=== PATIENT | male | born 1965 | race Caucasian/White ===

== ENCOUNTER 2025-01-19 07:57 | Inpatient (IN) ==
--- NOTE | 2025-01-19 09:03 | Emergency Department Note ---
Impression & Plan Right hallux osteomyelitis, Chronic osteomyelitis, Dry gangrene ED Provider Note NAME: TRE ALONSO AGE: 59 SEX: M : 1965 ARRIVES VIA: Walk-In INFORMANT: Patient ED PROVIDER(S): Sly Vickers DO CHIEF COMPLAINT: toe infection HPI: This is a 59-year-old male with the PMHx of Peripheral artery disease, hyperlipidemia, prior DVT/thrombus s/p thrombectomy in June, tobacco use disorder and chronic toe infection presenting to [facility] for further evaluation of toe infection. Patient sent in by his outpatient tube bender for amputation. Patient states that he originally had a wound on his right toe last May. Patient states this was from his dog. Patient states it has gotten a lot worse and he continues to follow with podiatry. Patient reports a chronic infection. He states he has not been on antibiotics. He has right hallux ischemia appears like dry gangrene. he reports pain in the toe and chronic wound. He does report some drainage from the area. He reports that his right lower extremity is chronically swollen from his prior thrombectomy. They deny fever or chills. No cough or congestion. Denies chest pain or palpitations. No shortness of breath. They deny abdominal pain, nausea and vomiting. No urinary complaints. No recent changes in bowel movements. Patient denies recent changes in medications or OTC supplements. Patient offers no other complaints, today. ADDITIONAL HISTORY OBTAINED: Per HPI Chronic Medical/Social Conditions Affecting Care: Per HPI PAST MEDICAL HISTORY: See Below PAST SURGICAL HISTORY: See Below FAMILY HISTORY: See Below SOCIAL HISTORY: See Below HOME MEDICATIONS: See Below ALLERGIES: See Below VITALS: See Below PHYSICAL EXAMINATION: GENERAL: Sitting up in bed, alert, well appearing, well nourished, no distress, non-toxic EYE EXAM: normal conjunctiva. OROPHARYNX: no exudate, no erythema, lips, buccal mucosa, and tongue normal and mucous membranes are moist NECK: supple, no nuchal rigidity, no adenopathy, non-tender LUNGS: Clear to auscultation. Normal chest wall mechanics HEART: no murmurs, regular rate, regular rhythm ABDOMEN: abdomen soft, non-tender, no masses, no rebound or guarding. BACK: Back is symmetrical on inspection and there is no deformity, no midline tenderness, no CVA tenderness. SKIN: no rashes and no bruising UPPER EXTREMITIES: upper extremities are grossly normal. LOWER EXTREMITIES: 1+ edema of the RLE. Palpable DP. Gangrene of the hallux, minimal drainage. NEURO EXAM: Normal sensorium, GCS 15, normal speech, no gross weakness of arms, no gross weakness of legs. MEDICAL DECISION MAKING: Differential diagnoses includes but not limited to dry gangrene, osteomyelitis, dizziness status, cellulitis, PAD In summary, this is a 59 year old male who presented with gangrene of the R hallux. Differential as above. Nursing notes and pertinent past medical records reviewed. Vital signs reviewed and the patient is afebrile and HDS. History and presentation revealed sent in by podiatry for amputation. Time Study Observer was able to obtain records from the [facility] physicians group including recent documentation from his tube bender. Patient did have podiatry have a debridement recently. Patient was recommended to report to the emergency department for evaluation of possible amputation. Physical examination revealed as above. As a result of my initial evaluation, we will try to contact his tube bender and obtain labs/imaging. We will plan for inflammatory markers and basic labs. I do feel the patient likely has dry gangrene. Do feel there could be a component of chronic osteomyelitis. As far as imaging, we will obtain a basic x-ray. The patient may benefit from further imaging. I will calculate and obtain ABIs. Do feel the patient would benefit from CT scan or MRI. Diagnostics interpreted by me include cardiac monitoring as listed below: -Cardiac Monitoring: An order was placed for continuous cardiac monitoring. The monitor shows a rate of 50-70s with regular rhythm. Patient completed laboratory studies and imaging. Results independently interpreted by me are minimally elevated CRP. Patient does not have a leukocytosis or elevation in ESR. No significant electrolyte derangements or kidney dysfunction. CT showed ulceration and evidence of osteomyelitis of the right knee. Patient was made n.p.o. and closely observed in the emergency department. Given no significant systemic symptoms including no fevers as well as reassuring inflammatory markers I do believe this is likely chronic osteomyelitis. Do not feel the patient needs broad-spectrum antibiotics at this time. Patient was discussed with [facility] podiatry group, Dr. Anton. He has arranged OR time for this evening after 5 PM. Patient was made NPO. He did recommend collecting ABIs as discussed previously. Will obtain CTA of the lower extremity as well. I do not see a need for antibiotics at this time. Patient will be admitted to the hospitalist service following workup. Ultimately, the decision was made to admit the patient for dry gangrene and osteomyelitis of the right hallux. It was recommended to admit this patient at 1002. I discussed the case with the hospitalist service via telephone/TigerText and they are agreeable to admit the patient to their services at 1006. Based on the above, including the patient's age, coexisting illnesses, labs, imaging, and exam findings the decision to treat as an inpatient. I discussed the patient with the hospitalist team who recommended admission to their services. They received the medications, treatments, interventions indicated above and their condition remained stable. I discussed my findings with the patient and their family and they understand and agree with the treatment plan. All patient / family questions were answered to their satisfaction. Consults/Care Managements Discussions: Per [facility] ER treatment provided: See above Procedures:none Critical Care: None The chart was completed utilizing [employer] Speech voice recognition software. Grammatical errors, random word insertions, pronoun errors, and incomplete sentences are an occasional consequence of this system due to software limitations, ambient noise, and hardware issues. Any formal questions or concerns about the content, text, or information contained within the body of this dictation should be directly addressed to the physician for clarification. Past Med/Surg History Problem List (Updated 01/19/25 @ 17:11 by Sly Vickers DO) Dry gangrene (Acute) Chronic osteomyelitis (Acute) Acute on chronic osteomyelitis Right hallux osteomyelitis (Acute) Social History Smoking Status: Current some day smoker Tobacco Type: Cigarettes Hx Alcohol Use: Yes Alcohol type: beer Hx Substance Use: Yes Last Used Substance: Days (ago) Preferred Language: Yemeni Communication Ability: Effective Park Guard Required: No Beliefs That Will Affect Care: None Current Living Situation: Alone Other Information That Helps Us Care for You: No Feels Safe at Home: Yes Safety Concerns: Feels Safe At This Time Assistive Devices: None Allergies Allergies Allergy/AdvReac Type Severity Reaction Status Date / Time No Known Allergies Allergy Unverified 01/19/25 10:59 Home Meds Home Medications Medication Instructions Recorded Confirmed No Known Home Medications 01/19/25 01/19/25 Results & Data (ED) Vital Signs Vital Signs - 24 hr 01/19/25 08:03 01/19/25 09:52 01/19/25 10:51 Temperature 36.6 C Temperature Source Temporal Artery Scan Pulse Rate 74 Pulse Rate [Apical] 60 56 L Respiratory Rate 20 14 16 Respiratory Effort / Characteristics Non-Labored Spontaneous Respiratory Depth Normal Respiratory Pattern Regular Blood Pressure 136/85 Blood Pressure [Right Arm] 122/70 119/97 Blood Pressure Mean 102 Blood Pressure Mean [Right Arm] 87 104 Pulse Oximetry 95 97 98 Oxygen Delivery Method Room Air Room Air Room Air Sepsis Recent Fever Within 48 Hours No Sepsis New/Unexplained Change in Mental Status N/A Sepsis Action Taken by Nursing No Action Required Laboratory Data 01/19/25 08:30 01/19/25 08:30 Lab Results 01/19/25 Range/Units 08:30 WBC 10.61 (4.8-10.8) K/ul RBC 5.80 (4.70-6.10) M/uL Hgb 15.8 (14.0-18.0) g/dl Hct 47.1 (42.0-52.0) % MCV 81.2 (80.0-100.0) fL MCH 27.2 (25.0-34.0) pg MCHC 33.5 (32.0-36.0) g/dL RDW Std Deviation 41.1 (36.4-46.3) fL RDW Coeff of Serenity 14.2 (11.5-14.5) % Plt Count 232 (130-400) K/uL MPV 10.5 (9.4-12.4) fL Immature Gran % (Auto) 0.3 % Neut % (Auto) 64.4 % Lymph % (Auto) 23.5 % [place] % (Auto) 7.5 % Eos % (Auto) 3.6 % Baso % (Auto) 0.7 % Neut # (Auto) 6.84 H (1.40-6.50) K/uL Lymph # (Auto) 2.49 (1.20-3.40) K/uL [place] # (Auto) 0.80 H (0.11-0.59) K/uL Eos # (Auto) 0.38 (0.00-0.50) K/uL Baso # (Auto) 0.07 (0.00-0.20) K/uL Immature Gran # (Auto) 0.03 (0.01-0.20) K/uL ESR 9 (0-20) mm/hr Sodium 139 (136-145) mmol/L Potassium 3.8 (3.5-5.1) mmol/L Chloride 108 H (98-107) mmol/L Carbon Dioxide 26 (21-32) mmol/L Anion Gap 5 (3-11) BUN 16 (6-23) mg/dl Creatinine 0.84 (0.6-1.4) mg/dl Est Cr Clr Drug Dosing 103.3 ml/min eGFR 101.71 BUN/Creatinine Ratio 19.0 (10-20) Glucose 80 (70-99(Fasting)) mg/dl Calcium 8.8 (8.6-10.3) mg/dl C-Reactive Protein 0.59 H (0-0.5) mg/dl Administered Medications Sodium Chloride (Nss) 1,000 mls @ 80 mls/hr IV .[id number] STEPHEN Stop: 01/22/25 13:46 Last Admin: 01/19/25 14:59 Dose: 80 mls/hr Documented By: JESSICA Discontinued Medications Piperacillin Sod/Tazobactam Sod (Zosyn) 4.5 gm in 100 mls @ 200 mls/hr IV ONE ONE; Protocol Stop: 01/19/25 14:44 Last Infusion: 01/19/25 16:13 Dose: Infused Documented By: Admin: 01/19/25 14:58 Dose: 200 mls/hr Documented By: JESSICA Vancomycin HCl 1,750 mg/ (Sodium Chloride) 535 mls @ 200 mls/hr IV ONE ONE Stop: 01/19/25 16:55 Last Admin: 01/19/25 15:57 Dose: 200 mls/hr Documented By: JESSICA Ioversol (Optiray 320 100ml) 94 ml IV ONCE ONE Stop: 01/19/25 09:42 Last Admin: 01/19/25 09:41 Dose: 94 ml Documented By: SUSI Imaging Data Radiologist's Impression: Foot X-Ray 01/19/25 08:19 XR foot RT min 3V routine CLINICAL HISTORY: chronic OM concern COMPARISON: None FINDINGS: There is a 1.5 cm area of lucency distally at the first proximal phalanx. It has morphology suggesting osteomyelitis. No other evidence of osteomyelitis seen. No fracture or dislocation. There is a 4 cm oval smooth well marginated lucency at the anterior aspect of the calcaneus which could represent calcaneal lipoma or bone cyst. It has a benign appearance. IMPRESSION: Findings consistent with osteomyelitis distally at the first proximal phalanx. ACT 112: Negative or not required by law. Electronically signed by: Dakotah Colon M.D. 01/19/2025 9:[address] 01/19/25 09:03 CT foot RT w con CLINICAL HISTORY: eval for OM, free air, abscess COMPARISON STUDY: X-ray earlier today FINDINGS: There is a 1.6 cm area of osseous destruction distal aspect of the first proximal phalanx. There are multiple small gas locules within the first distal phalanx. There is soft tissue swelling at the great toe with multiple small soft tissue gas locules at the plantar aspect. There is a plantar soft tissue ulcer at the great toe which extends to the region of osseous destruction distally at the first distal phalanx. There is a possible tiny adjacent soft tissue abscess. No other significant soft tissue abscess or hematoma seen. No other evidence of osteomyelitis seen. No acute fracture or dislocation. There is a 4 cm oval sharply marginated finding at the anterior to mid plantar calcaneus with a smaller internal oval peripherally calcified finding. The finding has morphology consistent with calcaneal lipoma or bone cyst. It has a benign appearance. IMPRESSION: 1. Soft tissue ulcer and soft tissue gas at the great toe suggesting gangrene. 2. Acute osteomyelitis distally at the first proximal phalanx. 3. Otherwise as described. ACT 112: Negative or not required by law. Electronically signed by: Dakotah Colon M.D. 01/19/2025 10:05 AM Discharge Plan Visit Data Chief Complaint: Toe Injury/Pain Stated Complaint: R GRAND TOE NEEDS REMOVED ED Provider: Sly iVckers Discharge Problem: Right hallux osteomyelitis, Chronic osteomyelitis, Dry gangrene Patient Disposition: Admitted As Inpatient Condition: Good Discharge Instructions Interventions: ED Discharge Assessment Last Done: 01/19/25 13:28
[2025-01-19 09:04] LABS: Hematocrit (blood only) 47.1 % (42.0-52.0); Hemoglobin 15.8 g/dl (14.0-18.0); Immature Granulocytes # (auto) 0.03 K/uL (0.01-0.20); Immature Granulocytes % (auto) 0.3 %; Mean Corpuscular Hemoglobin 27.2 pg (25.0-34.0); Mean Corpuscular Volume 81.2 fL (80.0-100.0); Platelet Count 232 K/uL (130-400); RDW Standard Deviation 41.1 fL (36.4-46.3); Red Blood Count 5.80 M/uL (4.70-6.10); White Blood Count 10.61 K/ul (4.8-10.8)
--- NOTE | 2025-01-19 09:17 | XRay Report ---
XR foot RT min 3V routine CLINICAL HISTORY: chronic OM concern COMPARISON: None FINDINGS: There is a 1.5 cm area of lucency distally at the first proximal phalanx. It has morpholog y suggesting osteomyelitis. No other evidence of osteomyelitis seen. No fracture or dislocation. Ther e is a 4 cm oval smooth well marginated lucency at the anterior aspect of the calcaneus which could r epresent calcaneal lipoma or bone cyst. It has a benign appearance. IMPRESSION: Findings consistent with osteomyelitis distally at the first proximal phalanx. ACT 112: Negative or not required by law. Electronically signed by: Dakotah Colon M.D. 01/19/2025 9:16 AM
[2025-01-19 09:23] LABS: Anion Gap 5.0 (3-11); Blood Urea Nitrogen 16.0 mg/dl (6-23); Calcium 8.8 mg/dl (8.6-10.3); Carbon Dioxide 26.0 mmol/L (21-32); Chloride 108.0 mmol/L (98-107); Creatinine Clr Calc Pharmacy 103.3 ml/min; Glucose 80.0 mg/dl (70-99(Fasting)); Potassium 3.8 mmol/L (3.5-5.1); Sodium 139.0 mmol/L (136-145)
[2025-01-19] MEDS: OPTIRAY 320 100ml IV ONE (09:41)
--- NOTE | 2025-01-19 10:06 | CT Scan Report ---
CT foot RT w con CLINICAL HISTORY: eval for OM, free air, abscess COMPARISON STUDY: X-ray earlier today FINDINGS: There is a 1.6 cm area of osseous destruction distal aspect of the first proximal phalanx. There are multiple small gas locules within the first distal phalanx. There is soft tissue swelling a t the great toe with multiple small soft tissue gas locules at the plantar aspect. There is a plantar soft tissue ulcer at the great toe which extends to the region of osseous destruction distally at th e first distal phalanx. There is a possible tiny adjacent soft tissue abscess. No other significant s oft tissue abscess or hematoma seen. No other evidence of osteomyelitis seen. No acute fracture or dislocation. There is a 4 cm oval sharply marginated finding at the anterior to mid plantar calcaneus with a smaller internal oval peripherally calcified finding. The finding has mo rphology consistent with calcaneal lipoma or bone cyst. It has a benign appearance. IMPRESSION: 1. Soft tissue ulcer and soft tissue gas at the great toe suggesting gangrene. 2. Acute osteomyelitis distally at the first proximal phalanx. 3. Otherwise as described. ACT 112: Negative or not required by law. Electronically signed by: Dakotah Colon M.D. 01/19/2025 10:05 AM
--- NOTE | 2025-01-19 11:26 | History & Physical Report ---
Date of Service January 19, 2025 Assessment & Plan (1) Right hallux osteomyelitis: (2) Acute on chronic osteomyelitis: Plan Mario West is a 59 y/o M with a past medical hx of PAD, DVT s/p thrombectomy in June, tobacco use disorder and chronic R. hallux infection and patient was sent by outpatient glass laminating operator for admit to [facility] for toe amputation surgery. Right Hallux Osteomyelitis/Acute on chronic osteomyelitis - X-ray R. foot: 1.5cm area of lucency distally at first proximal phalanx, morphology concerning for osteomyelitis - CT R. foot: Soft tissue ulcer and soft tissue gas at R. first toe suggesting gangrene. Acute osteomyelitis at distal first proximal phalanx - Etiology of poor wound healing likely related to PAD - Zosyn and Vancomycin broad spectrum abx started, can downgrade after cx results. - MRSA nares pending, ABIs pending - Bcx x2 ordered and pending - NPO pending toe amputation surgery today History of Present Illness Primary Care Provider: NO PCP Mario West is a 59 y/o M with a past medical hx of PAD, DVT s/p thrombectomy in June, tobacco use disorder and chronic R. hallux infection and patient was sent by outpatient glass laminating operator for admit to [facility] for toe amputation surgery. Patient's R. big toe is blackened with ischemia and nail sloughing off, some erythema present under open toe nail. Podiatry team with [facility] and Dr. Mazariegos will be performing toe amputation surgery and patient is amenable to this plan. Patient denies fevers, chills, headaches, chest pain, palpitations, SOB, cough, wheeze, abdominal pain, nausea, and vomiting. Patient reports that he is in "perfect physical condition" other than his big toe. Patient reports that he has feeling in all extremities and reports mild soreness of the toe that is moderately exacerbated by touch and wearing shoes. Patient reports that a dog scratch last May resulted in the affected toe becoming e rythematous and swollen and resulting in a 2 week hospital stay requiring IV antibiotics and podiatry follow-up. Patient reports that his toe was not blackened during this time. Patient typically uses topical antibiotic cream and wraps R. big toe. Patient reports that he only takes a baby aspirin daily and calcium supplement as his regular medications. Patient is hemodynamically stable, and has no acute complaints or concerns other than feeling hungry. Allergies Allergy/AdvReac Type Severity Reaction Status Date / Time No Known Allergies Allergy Unverified 01/19/25 10:59 Home Medications Medication Instructions Recorded Confirmed Type No Known Home Medications 01/19/25 01/19/25 History Past Med/Surg History Problem List (Updated 01/19/25 @ 12:04 by Ric Gardner DO) Acute on chronic osteomyelitis Right hallux osteomyelitis Social History Smoking Status: Current some day smoker Tobacco Type: Cigarettes Hx Alcohol Use: Yes Alcohol type: beer Hx Substance Use: Yes Last Used Substance: Days (ago) Preferred Language: Polish Communication Ability: Effective Bank Clerk Required: No Beliefs That Will Affect Care: None Current Living Situation: Alone Other Information That Helps Us Care for You: No Feels Safe at Home: Yes Safety Concerns: Feels Safe At This Time Assistive Devices: None Physical Exam Physical Exam: General: patient resting comfortably, NAD, non-toxic in appearance, answers questions appropriately. Skin: warm, dry, intact HEENT: NC/AT, anicteric sclera, conjunctiva without injection, moist mucus membranes. Heart: +S1/S2, regular, no m/r/g Lungs: equal air entry bilaterally, no rales/rhonchi/wheezes Abd: +BS, soft, NT/ND Ext: warm, no clubbing/cyanosis. R. Hallux w/ necrosis of big toenail w/ edema and erythema. Blackened toenail sloughing with underlying erythematous dermis seen from open wound. Tender to light palpation. Neuro: nonfocal, speech intact, no facial droop, moving all extremities. Results & Data Results & Data Vital Signs (Past 12 Hours) Vital Signs Temp Pulse Pulse Resp BP BP Pulse Ox 01/19/25 10:51 56 L 16 119/97 98 01/19/25 09:52 60 14 122/70 97 01/19/25 08:03 36.6 C 74 20 136/85 95 O2 Del Method 01/19/25 10:51 Room Air 01/19/25 09:52 Room Air 01/19/25 08:03 Room Air Supervising Physician Co-Signing Physician Notes I personally examined the patient and verified vance points of history and exam, discussed case, and agree with decision making and plan documented by Dr. Gardner. Patient is a 59-year-old male with gangrenous great right toe, scheduled for amputation later today. Osteomyelitis on CT foot. Agree with plan. Resident Activity Tracking Resident Involvement: Resident Care Provided Care Provided: Adult [facility]
[2025-01-19] MEDS ORDERED: VANCOMYCIN HCL 1,000 MG/270 ML BAG IV SCH (13:47)
[2025-01-19] MEDS ORDERED: VANCOMYCIN CONSULT ACTIVE PRN (13:47)
--- NOTE | 2025-01-19 14:20 | Pharmacy Report ---
Pharmacy PK ABX Note - Date of Service January 19, 2025 - Assessment and Plan Assessment 59 year old M receiving IV Vancomycin + Zosyn for treatment of chronic R. hallux infection/osteo, patient was sent to [facility] by outpatient neuro psych sales specialist for toe amputation surgery. - X-ray R. foot: 1.5cm area of lucency distally at first proximal phalanx, morphology concerning for osteomyelitis. Blood cultures ordered, but refused by patient. Afebrile, WBC wnl. Day # 1 of antimicrobial therapy. Plan Vancomycin * Loading dose: 1750 mg IV x 1 * Maintenance dose: 1250 mg IV every 12 hours * Regimen is predicted to achieve target AUC/TITO of 400-600 mg/L.hr * Trough level ordered for:01/20/25 prior to 1200 dose Zosyn 4.5g IV Q8H extended interval infusion Pharmacy will continue to follow and will adjust dose/frequency as necessary. Thank you. Pharmacy has transitioned to AUC monitoring for vancomycin. AUC/TITO is the preferred PK/PD target and is associated with decreased risk of nephrotoxicity compared to traditional trough targets.
[2025-01-19] MEDS: PIPERACILLIN/TAZOBACTAM 4.5 GM/100 ML BAG IV ONE (14:58)
[2025-01-19] MEDS: SODIUM CHLORIDE 0.9% 1,000 ML IV SCH (14:59)
[2025-01-19] MEDS ORDERED: MIDAZOLAM HCL 1 MG/ML 2ML VIAL ONE (15:14)
[2025-01-19] MEDS ORDERED: LIDOCAINE 2% 2 ML VIAL/AMP(20MG/ML) INFIL ONE (15:14)
[2025-01-19] MEDS ORDERED: ONDANSETRON INJ 2 MG/ML 2 ML VIAL ONE (15:14)
[2025-01-19] MEDS ORDERED: PROPOFOL IV EMULSION 10 MG/ML 20 ML VIAL IV ONE (15:14)
[2025-01-19] MEDS: VANCOMYCIN HCL 1,750 MG in SODIUM CHLORIDE 0.9% 500 ML IV ONE (15:57)
--- NOTE | 2025-01-19 17:03 | Infectious Disease Consult ---
Date of Consultation January 19, 2025 Assessment & Plan (1) Right hallux osteomyelitis: Plan ID Problem List: # Right hallux wound c/b osteomyelitis # PAD Impression: Mario West is a 59-year-old man with history of PAD, DVT s/p thrombectomy 06/2024, tobacco use disorder, chronic R hallux wound, who was sent by his podiatry to [facility] on 01/19/25 for R big toe infection c/b osteomyelitis and planned amputation. ID is consulted for R hallux osteomyelitis. The patient has a chronic R big toe wound. It has been recently noted to be blackened with the nail sloughing off. The patient was sent to [facility] on 01/19/25 for toe amputation. No fevers, chills, shortness of breath, cough, abdominal pain, n/v/d reported. He has been feeling well aside from his toe wound. He did report a dog scratch 05/2025 that resulted in the affected toe becoming erythematous and swollen and resulting in a 2 week hospital stay requiring IV antibiotics and podiatry follow-up. Upon presentation, afebrile, WBC 10.61. X-ray showed a 1.5cm area of lucency distally at first proximal phalanx, morphology concerning for osteomyelitis. CT R foot showed soft tissue ulcer and soft tissue gas at R first toe c/f gangrene; acute osteomyelitis at distal first proximal phalanx. He was started on vancomycin and pip-tazo. He is planned for toe amputation with podiatry today . Pt was not reported to have been on outpatient abx prior to admission. Discussion Pt with chronic R hallux wound c/b osteomyelitis. Pending OR planned for 01/19 with podiatry for toe amputation. No records available of any outpatient cultures/micro data. Pt was not reported to have been on outpatient abx prior to admission. He was started on vancomycin and pip-tazo this is a broader pre-operative regimen than is typically preferred (especially given pts clinical stability) but he is planned to go to OR within a few hours of the abx starting. Final abx selection and duration will be pending surgical plan and Cx. If debriding/amputating with residual bony infection, anticipate a 6-week course of abx (likely majority if not all IV); if receiving a more proximal amputation which removes all of the bony infection, then anticipate only a short course of abx post-operatively. Can continue vancomycin and pip-tazo for now pending OR Cx. Recommendations: - Can continue vancomycin and pip-tazo for now pending OR Cx - Appreciate podiatry, OR planned for 01/19. If going to the OR, please send bone and tissue cultures for bacterial and fungal cultures. If applicable, send proximal bone margins for pathology - If residual osteomyelitis after OR, then anticipate a 6-week course of abx ID will continue to follow. Edwige Aggarwal MD, M[facility] Infectious Diseases [facility] ID Connect direct line: [phone] Consultation Information This patient recommendation is based on a telemedicine consult request which was completed asynchronously through chart review and information provided by the primary physician. The patient was not seen or examined today. The evaluation is consultative in nature and all patient care and treatment decisions can either be accepted or rejected by the patient's primary hospital-based treating physician using their own independent medical judgment for their patient. Motion Picture Camer[employer] contact information: Please call [facility] Connect Call Center . (Phone Number For Physician Use Only) PLEASE NOTE: E-consult was performed for this visit given limited telepresenter availability. Time Spent Reviewing Chart: 31+ minutes History of Present Illness Reason for Consultation: R hallux osteomyelitis Attending Physician: Tessa Sorto DO History of Present Illness Mario West is a 59-year-old man with history of PAD, DVT s/p thrombectomy 06/2024, tobacco use disorder, chronic R hallux wound, who was sent by his podiatry to [facility] on 01/19/25 for R big toe infection c/b osteomyelitis and planned amputation. ID is consulted for R hallux osteomyelitis. The patient has a chronic R big toe wound. It has been recently noted to be blackened with the nail sloughing off. The patient was sent to [facility] on 01/19/25 for toe amputation. No fevers, chills, shortness of breath, cough, abdominal pain, n/v/d reported. He has been feeling well aside from his toe wound. He did report a dog scratch 05/2025 that resulted in the affected toe becoming erythematous and swollen and resulting in a 2 week hospital stay requiring IV antibiotics and podiatry follow-up. Upon presentation, afebrile, WBC 10.61. X-ray showed a 1.5cm area of lucency distally at first proximal phalanx, morphology concerning for osteomyelitis. CT R foot showed soft tissue ulcer and soft tissue gas at R first toe c/f gangrene; acute osteomyelitis at distal first proximal phalanx. He was started on vancomycin and pip-tazo. He is planned for toe amputation with podiatry today 01/19. Pt was not reported to have been on outpatient abx prior to admission. Allergies Allergy/AdvReac Type Severity Reaction Status Date / Time No Known Allergies Allergy Unverified 01/19/25 10:59 Home Medications Medication Instructions Recorded Confirmed Type No Known Home Medications 01/19/25 01/19/25 History Patient History Social History Smoking Status: Current some day smoker Tobacco Type: Cigarettes Hx Alcohol Use: Yes Alcohol type: beer Hx Substance Use: Yes Last Used Substance: Days (ago) Preferred Language: [place]amb[place] Communication Ability: Effective Trauma Manager Required: No Beliefs That Will Affect Care: None Current Living Situation: Alone Other Information That Helps Us Care for You: No Feels Safe at Home: Yes Safety Concerns: Feels Safe At This Time Assistive Devices: None Results & Data Vital Signs (Past 12 Hours) Vital Signs Temp Pulse Pulse Resp BP BP Pulse Ox 01/19/25 13:48 36.4 C L 63 18 123/79 96 01/19/25 10:51 56 L 16 119/97 98 01/19/25 09:52 60 14 122/70 97 01/19/25 08:03 36.6 C 74 20 136/85 95 O2 Del Method 01/19/25 13:48 Room Air 01/19/25 10:51 Room Air 01/19/25 09:52 Room Air 01/19/25 08:03 Room Air Diagnostic Findings Diagnostics: 01/19 CT R foot 1. Soft tissue ulcer and soft tissue gas at the great toe suggesting gangrene. 2. Acute osteomyelitis distally at the first proximal phalanx. 3. Otherwise as described. 01/19 CXR R foot: There is a 1.5 cm area of lucency distally at the first proximal phalanxFindings consistent with osteomyelitis distally at the first proximal phalanx. Micro Data: Antibiotic Summary: vancomycin (01/19 present) pip-tazo (01/19 present)
--- NOTE | 2025-01-19 17:14 | Anesthesiology Consultation ---
Date of Service January 19, 2025 Assessment & Plan (1) Encounter for pre-operative examination: Chart Review Chart Review: Acceptable Risk for Surgery and Patient NOT seen in Pre Admission Testing Consults Requested none History Surgery Operation Date: 01/19/25 10:50 Proposed Procedures p Right Great Toe Amputation - Gigi Anton DPM Height/Weight Height: 6 ft 1 in Weight: 80.8 kg Allergies Allergy/AdvReac Type Severity Reaction Status Date / Time No Known Allergies Allergy Unverified 01/19/25 10:59 Medications Home Medications Medication Instructions Recorded Confirmed Last Taken No Known Home Medications 01/19/25 01/19/25 Unknown Active Medications Generic Name Dose Route Start Last Admin Trade Name Freq PRN Reason Stop Dose Admin Sodium Chloride 1,000 mls @ 80 mls/hr 01/19/25 13:47 01/19/25 14:59 Nss IV 01/22/25 13:46 80 mls/hr .[id number] STEPHEN Administration NPO Date Last Intake of Fluids: 01/19/25 Time Last Intake of Fluids: 06:00 Date Last Intake of Solids: 01/19/25 Time Last Intake of Solids: 06:00 Social History Smoking Status: Current some day smoker Hx Alcohol Use: Yes Alcohol type: beer alcohol intake frequency: a few times a week Hx Substance Use: Yes substance use type: marijuana Last Used Substance: Days (ago) Physical Exam Vital Signs Last Vital Signs Temp 98.2 F 01/19/25 17:08 Pulse 60 01/19/25 17:08 Resp 18 01/19/25 17:08 BP 134/83 01/19/25 17:08 Pulse Ox 97 01/19/25 17:08 O2 Del Method Room Air 01/19/25 17:08 Testing Laboratory Results 01/19/25 08:30 01/19/25 08:30
[2025-01-19] MEDS ORDERED: ATROPINE SULFATE 0.1 MG/ML 10ML SYR IV PRN (17:15)
[2025-01-19] MEDS ORDERED: ONDANSETRON INJ 2 MG/ML 2 ML VIAL IV PRN (17:15)
[2025-01-19] MEDS ORDERED: KETAMINE HCL 10MG/ML SYR ONE (17:17)
--- NOTE | 2025-01-19 17:26 | Podiatry Consultation ---
Date of Consultation January 19, 2025 Assessment & Plan (1) Dry gangrene: (2) Right hallux osteomyelitis: (3) PVD (peripheral vascular disease): (4) Cellulitis of right foot: (5) Pain in right foot: Plan Assessment: Right great toe gangrene PVD Osteomyelitis Pain in right great toe Cellulitis right foot Plan: All notes, labs and imagining reviewed Plan for right great toe amputation 01/19/25 Patient NPO since this morning CT ordered and reviewed Vascular studies pending. Will review findings Infectious disease consulted. Appreciate recommendations History of Present Illness Reason for Consultation: Right great toe gangrene Attending Physician: Tessa Sorto DO Allergies Allergy/AdvReac Type Severity Reaction Status Date / Time No Known Allergies Allergy Unverified 01/19/25 10:59 Home Medications Medication Instructions Recorded Confirmed Type No Known Home Medications 01/19/25 01/19/25 History Patient History Social History Smoking Status: Current some day smoker Tobacco Type: Cigarettes Hx Alcohol Use: Yes Alcohol type: beer Hx Substance Use: Yes Last Used Substance: Days (ago) Preferred Language: [place] Island[place] Communication Ability: Effective Enterprise Systems Architect Required: No Beliefs That Will Affect Care: None Current Living Situation: Alone Other Information That Helps Us Care for You: No Feels Safe at Home: Yes Safety Concerns: Feels Safe At This Time Assistive Devices: None Review of Systems Review of Systems: Reviewed Physical Exam Cardiovascular: DP and PT pulses non-palpable. no hair growth noted. Edema noted to bilateral lower extremities Musculoskeletal: muscle strength 5/5 to all muscle groups. pain to palpation of right great hallux Skin: Full thickness wound down to the level of bone noted to the right hallux. Necrotic changes with drainage, edema, erythema and pain to palpation noted. wound does probe to the level of the bone. Neurologic: Light touch and protective sensation diminished Results & Data Vital Signs (Past 12 Hours) Vital Signs Temp Pulse Pulse Resp BP BP Pulse Ox 01/19/25 17:08 36.8 C 60 18 134/83 97 01/19/25 13:48 36.4 C L 63 18 123/79 96 01/19/25 10:51 56 L 16 119/97 98 01/19/25 09:52 60 14 122/70 97 01/19/25 08:03 36.6 C 74 20 136/85 95 O2 Del Method 01/19/25 17:08 Room Air 01/19/25 13:48 Room Air 01/19/25 10:51 Room Air 01/19/25 09:52 Room Air 01/19/25 08:03 Room Air
[2025-01-19] MEDS: BUPIVACAINE 0.5 % 5 MG/1 ML MPF 30ML VIAL ONE (18:00)
--- NOTE | 2025-01-19 18:27 | Post Operative Brief Note ---
Immediate Post Op Note Date of Surgery January 19, 2025 Pre & Post Diagnosis Operation Date: 01/19/25 10:50 Pre-Op Diagnosis: Right Hallux Osteomyelitis Right hallux gangrene Post-Op Diagnosis: Right Hallux Osteomyelitis Right hallux gangrene I identified the patient and participated in the time-out.: Yes Procedure Operation Date: 01/19/25 10:50 Actual Procedures p Right Great Toe Amputation(Right) - Gigi Anton DPM Surgeon Gigi Anton DPM Orthotist n/a Estimated Blood Loss 25 Findings Consistent with Post-Op Diagnosis Necrosis of right hallux. 3ccs of purulent drainage was noted Anesthesia Type MAC Complications n/a
--- NOTE | 2025-01-19 18:30 | Anesthesiology Progress Note ---
Date of Service January 19, 2025 Anesthesia Post Procedure Vital Signs Vital Signs: Temp Pulse Pulse Resp BP BP Pulse Ox 01/19/25 18:25 63 15 113/72 96 01/19/25 18:15 97.0 F L 61 12 111/73 96 01/19/25 17:08 98.2 F 60 18 134/83 97 01/19/25 13:48 97.5 F L 63 18 123/79 96 01/19/25 10:51 56 L 16 119/97 98 01/19/25 09:52 60 14 122/70 97 01/19/25 08:03 97.9 F 74 20 136/85 95 O2 Del Method O2 Flow Rate 01/19/25 18:25 Room Air 01/19/25 18:15 Oxymask 4 01/19/25 17:08 Room Air 01/19/25 13:48 Room Air 01/19/25 10:51 Room Air 01/19/25 09:52 Room Air 01/19/25 08:03 Room Air Pain Intensity Right Foot: Pain Intensity: 5 Transfer of Care Handoff Completed per policy Notes Mental Status: alert / awake / arousable and participated in evaluation Patient Amnestic to Procedure: Yes Nausea / Vomiting: adequately controlled Pain: adequately controlled Airway Patency, RR, SpO2: stable & adequate BP & HR: stable & adequate Hydration State: stable & adequate Anesthetic Complications: no major complications apparent and Pt Satisfied with anesthetic care
--- NOTE | 2025-01-19 21:09 | Operative Report ---
Post Operative Report Pre & Post Diagnosis Operation Date: 01/19/25 10:50 Pre-Op Diagnosis: Right Hallux Osteomyelitis Right hallux gangrene Post-Op Diagnosis: Right Hallux Osteomyelitis Right Hallux Gangrene I identified the patient and participated in the time-out.: Yes Procedure Operation Date: 01/19/25 10:50 Actual Procedures p Right Great Toe Amputation(Right) - Gigi Anton DPM Surgeon Gigi Anton DPM Lens Grinder Rough n/a Estimated Blood Loss 25 Findings Consistent with Post-Op Diagnosis necrosis of right hallux. 3 ccs of purulent drainage was noted Specimens Specimens from right hallux sent to microbiology and pathology Anesthesia Type MAC Complications n/a Disposition Accompanied Patient To Recovery: Yes Indications Patient was admitted to the hospital over concerns of right hallux gangrene and osteomyelitis. Right hallux wound Description of Procedure Following satisfactory pre-op evaluation the patient was brought into the OR and laced on the OR table in the supine position. MAC sedation was administered by anesthesia. Following sedation, 20 ccs of 0.5 marcaine plain was then injected into the right foot in a webb block fashion. the foot was then prepped and draped in the usual sterile manner and lowered onto the surgical field. Attention was then directed to the right hallux where there is noted to be gangrene, edema, tissue slough and purulent drainage. The hallux was gripped and using a 15 blade an incision was made through the skin to bone circumferencing the base of the 1st digit distal phalanx to viable tissue. the proximal phalanx was then freed from its attachments and disarticulated at the the MPJ by a 15 blade. The digit was then passed off the field to be sent for microbiologic and pathologic evaluation. Deep cultures were taken as well as bone from the distal phalanx. the head of the 1st metatarsal bone was noted to be healthy with no signs of infection to the joint. The surrounding soft tissues were debrided of all nonviable tissue and inspected from tracking of infection and no evidence of further infection was found. The skin edges were noted to be healthy bleeding tissue. The amputation site was then cleaned and flushed with copious amounts of sterile saline. At this time the amputation site is noted to be all healthy viable tissue with no evidence of injection involving the joint so primary closure was done. The tissue was reapproximated and the skin was coapted with 3- 0 nylon suture. Dressing consisting of xeroform, 4x4s, ABD, kerlix and HEDY bandage was applied. Patient tolereated anesthesia and procedure well and was transported back to recovery. I attest to the content of the Intraoperative Record and any orders documented therein. Any exceptions are noted below.
[2025-01-19] MEDS: PIPERACILLIN/TAZOBACTAM 4.5 GM/100 ML BAG IV SCH (21:11)
--- NOTE | 2025-01-19 21:11 | Ultrasound Report ---
Exam(s): US RADHA EXAM: US Ankle-Brachial Index (RADHA), 1 or 2 Levels CLINICAL HISTORY: Reason for exam: PAD. TECHNIQUE: Limited bilateral and noninvasive physiological study of the upper or lower extremity arteries. Bidirectional, Doppler and pressure waveform recording with analysis at 1-2 levels. COMPARISON: No relevant prior studies available. FINDINGS: Right RADHA: Unremarkable. No evidence of peripheral arterial disease. Left RADHA: Unremarkable. No evidence of peripheral arterial disease. IMPRESSION: RADHA are within normal limits Electronically signed by: Tyler Millan MD 01/19/25 21:10 PM
[2025-01-19] MEDS: MoRPHine SULFATE 2 MG/ML CARP IV PRN (22:58)
[2025-01-20] MEDS: VANCOMYCIN HCL 1,250 MG in SODIUM CHLORIDE 0.9% 250 ML IV SCH (01:07)
[2025-01-20] MEDS: ACETAMINOPHEN 500 MG TAB PO PRN (01:07)
[2025-01-20] MEDS: MoRPHine SULFATE 2 MG/ML CARP IV PRN (02:44)
[2025-01-20 07:01] LABS: Creatinine Clr Calc Pharmacy 105.9 ml/min
--- NOTE | 2025-01-20 07:20 | Podiatry Progress Note ---
Date of Service January 20, 2025 Assessment & Plan (1) Dry gangrene: (2) Right hallux osteomyelitis: (3) PVD (peripheral vascular disease): (4) Cellulitis of right foot: (5) Pain in right foot: (6) Status post amputation of right great toe: Plan Assessment: Right great toe gangrene PVD Osteomyelitis Pain in right great toe Cellulitis right foot S/P Amputation of right great toe 01/19/25 Plan: All notes, labs and imagining reviewed s/p right great toe amputation 01/19/25 CT reviewed Vascular studies show normal ABIs. Patient can continue to follow up with Dr. Azar outpatient Patient is to be partial weightbearing in surgical shoe. Infectious disease consulted. Appreciate recommendations Surgical cultures are pending. Dressing: Xeroform, 4x4s, ABD, Kerlix and HEDY bandage. Recommend home health care for dressing changes. Patient receptive to home health care. Patient is okay to be discharged from podiatry perspective once medically cleared by all other specialities Patient to follow up next Friday01/25/25 in office Admission and Anticipated Discharge Date Admission Date: January 19, 2025 Subjective Patient is S/P right hallux amputation 01/19/25. States that he is having pain to the right foot. Is taking medication for pain control. States that he is doing well overall. No new pedal complaints. Surgical cultures pending. Review of Systems Review of Systems: Reviewed all systems and are consistent with history and physical Physical Exam Constitutional: WD/WN, vitals as above Skin: Incision noted to the right medial foot. Incision is well co-apted and the sutures are intact with no gapping noted. Edema and erythema and pain to palpation noted to the right foot. minor drainage noted from the incision site. Pain to palpation to medial foot. Neurologic: Light touch intact. Protective sensation is diminished. Results & Data Results & Data Vital Signs (Past 12 Hours) Vital Signs Temp Pulse Pulse Resp BP Pulse Ox O2 Del Method 01/20/25 07:00 36.7 C 63 16 121/72 95 Room Air 01/19/25 23:25 36.7 C 64 18 156/78 H 99 Room Air 01/19/25 21:10 Room Air
--- NOTE | 2025-01-20 07:59 | Hospitalist Progress Note ---
Date of Service January 20, 2025 Assessment & Plan (1) Right hallux osteomyelitis: (2) Acute on chronic osteomyelitis: Plan Mario West is a 59 y/o M with a past medical hx of PAD, DVT s/p thrombectomy in June, tobacco use disorder and chronic R. 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 #S/P Right Great Toe Amputation for Right hallus Osteomyelitis and Gangrene - ID on board -ID recommendation. Continue Zosyn and Vancomycin until OR culture reports available.As per Podiatry, low suspicion for residual Osteomyelitis. Plan to treat as SSTI for 10-14 day course -OR culture reports pending -Pain management: > Morphine 1mg IV q3hr for pain rating 6,7,8 > Morphine 2mg IV q3hr for pain rating 9 and 10 > Percocet 1 tab po q4hr PRN Code: Full code DVT Prophylaxis: Lovenox Admission and Anticipated Discharge Date Admission Date: January 19, 2025 Supervising Physician Co-Signing Physician Notes I personally examined the patient and verified vance points of history and exam, discussed case, and agree with decision making and plan documented by Dr. Gardner. Patient is a 59-year-old male with gangrenous great right toe. Osteomyelitis on CT foot. Amputation 01/19/25. Significant postop pain. ID following. Continue vancomycin and piperacillin-tazobactam. Recommended to treat as skin and soft tissue infection for duration of 10 to 14 days pending culture. Vance Martin was evaluated this morning. He was complaining of severe pain rating 7/10 in operative site. Added Percocet for pain control. Otherwise no bleeding , fever or any new concerns. Review of Systems Review of Systems: As per HPI Physical Exam Physical Exam: Constitutional: Well appearing, No acute distress, PILCCOD: Negative HEENT: Atraumatic, Normocephalic, No conjunctival injection CVS: S1 S2 no murmur, Regular Rhythm, no LE edema Respiratory: BL equal air entry with NVBS. No rhonchi, wheezes, or crackles. No increased work of breathing GI: Soft, Nondistended, Nontender, Normal Bowel sounds + MSK: No gross deformities noted Skin: Warm, Dry, No rashes Neuro: Alert, Oriented to TPP, No Focal deficit Psych: Mood and Affect congruent, Cooperative on exam Results & Data Results & Data Vital Signs (Past 12 Hours) Vital Signs Temp Pulse Pulse Resp BP Pulse Ox O2 Del Method 01/20/25 07:00 36.7 C 63 16 121/72 95 Room Air 01/19/25 23:25 36.7 C 64 18 156/78 H 99 Room Air 01/19/25 21:10 Room Air Resident Activity Tracking Resident Involvement: Resident Care Provided Care Provided: Adult Hospital Medicine
[2025-01-20] MEDS ORDERED: VANCOMYCIN LEVEL ONE (11:30)
--- NOTE | 2025-01-20 12:31 | Infectious Disease Progress Nt ---
Date of Service January 20, 2025 Assessment & Plan (1) Right hallux osteomyelitis: Plan ID Problem List: # Right hallux wound c/b osteomyelitis # PAD Impression: Mario West is a 59-year-old man with history of PAD, DVT s/p thrombectomy 06/2024, tobacco use disorder, chronic R hallux wound, who was sent by his podiatry to [facility] on 01/19/25 for R big toe infection c/b osteomyelitis and planned amputation. ID is consulted for R hallux osteomyelitis. The patient has a chronic R big toe wound. It has been recently noted to be blackened with the nail sloughing off. The patient was sent to [facility] on 01/19/25 for toe amputation. No fevers, chills, shortness of breath, cough, abdominal pain, n/v/d reported. He has been feeling well aside from his toe wound. He did report a dog scratch 05/2025 that resulted in the affected toe becoming erythematous and swollen and resulting in a 2 week hospital stay requiring IV antibiotics and podiatry follow-up. Upon presentation, afebrile, WBC 10.61. X-ray showed a 1.5cm area of lucency distally at first proximal phalanx, morphology concerning for osteomyelitis. CT R foot showed soft tissue ulcer and soft tissue gas at R first toe c/f gangrene; acute osteomyelitis at distal first proximal phalanx. He was started on vancomycin and pip-tazo. He is planned for toe amputation with podiatry today 01/19. Pt was not reported to have been on outpatient abx prior to admission. Discussion Pt with chronic R hallux wound c/b osteomyelitis. S/p R great toe amputation on 01/19. OR findings of gangrene and purulence of the R hallux. After disarticulation at the MPJ, the head of the 1st metatarsal bone was noted to be healthy without e/o infection to the joint. Primary closure was performed. On 01/20, I discussed with Dr. Anton. The first metatarsal looked healthy and low suspicion for residual osteomyelitis at this time. No recent prior outpatient cultures/micro data were obtained, per podiatry. Pt was not on any outpatient abx prior to admission. He was started on vancomycin and pip-tazo on the same day that he went to the OR. Can continue vancomycin and pip-tazo for now pending OR Cx. Per podiatry, low suspicion for residual osteomyelitis, therefore planning to treat for SSTI (e.g., a 10 to 14-day course). PO options may be available, pending Cx. Recommendations: - Can continue vancomycin and pip-tazo for now pending OR Cx - F/u 01/19 OR Cx - Per podiatry, low suspicion for residual osteomyelitis, therefore planning to treat for SSTI - Ensure close follow-up with podiatry, wound care, and primary care ID will continue to follow. Edwige Aggarwal MD, MHS Infectious Diseases [facility]/ID Connect ID Connect direct line: [phone] Admission and Anticipated Discharge Date Admission Date: January 19, 2025 Subjective Subsequent visit was provided via telemedicine using two-way real-time interactive telecommunication between the patient and the telemedicine provider. For the duration of the visit, the provider was performing the assessment from a different facility than the patient. This includesuse of bluetooth stethoscope forauscultationperformed by the telepresenter that the telemedicine provider can hear if described in the physical exam. [employer] Representative contact information: Please call ID Connect Call Center [phone]. (Phone Number For Physician Use Only) After establishing a telemedicine visit, patient was: Patient was verified with two unique identifiers, Patient/authorized rep acknowledged consent and understanding and Gave permission to continue telehealth session Time Spent with Patient: Subsequent => 35 min - Afebrile - S/p R great toe amputation on 01/19. OR findings of gangrene and purulence of the R hallux. After disarticulation at the MPJ, the head of the 1st metatarsal bone was noted to be healthy without e/o infection to the joint. Primary closure was performed. - On 01/20, I discussed with Dr. Anton. The first metatarsal looked healthy and low suspicion for residual osteomyelitis at this time. - Pt has foot pain, but no other symptoms. No other wounds at this time. Was not on any outpatient abx prior to surgery. Physical Exam Physical Exam: Exam obtained with assistance of an in-person telepresenter General: Well-appearing, no acute distress HEENT: Conjunctivae non-injected, sclerae anicteric, MMM, OP clear. Resp: Respirations nonlabored. Ext: R foot in dressing Skin: No rashes or lesions. Neuro: Alert & interactive. Grossly non-focal. Psych: Pleasant, appropriate. Results & Data Vital Signs (Past 12 Hours) Vital Signs Temp Pulse Resp BP Pulse Ox O2 Del Method 01/20/25 07:15 Room Air 01/20/25 07:00 36.7 C 63 16 121/72 95 Room Air Diagnostic Findings Diagnostics: 01/19 CT R foot 1. Soft tissue ulcer and soft tissue gas at the great toe suggesting gangrene. 2. Acute osteomyelitis distally at the first proximal phalanx. 3. Otherwise as described. 01/19 CXR R foot: There is a 1.5 cm area of lucency distally at the first proximal phalanxFindings consistent with osteomyelitis distally at the first proximal phalanx. Micro Data: Antibiotic Summary: vancomycin (01/19 present) pip-tazo (01/19 present)
[2025-01-20] MEDS: ENOXAPARIN INJ 40 MG/0.4 ML SYR SQ SCH (17:33)
[2025-01-21 06:46] LABS: Creatinine Clr Calc Pharmacy 100.1 ml/min
--- NOTE | 2025-01-21 07:11 | Podiatry Progress Note ---
Date of Service January 21, 2025 Assessment & Plan (1) Right hallux osteomyelitis: (2) PVD (peripheral vascular disease): (3) Cellulitis of right foot: (4) Status post amputation of right great toe: Plan Assessment: Right great toe gangrene PVD Osteomyelitis Pain in right great toe Cellulitis right foot S/P Amputation of right great toe 01/19/25 Plan: All notes, labs and imagining reviewed s/p right great toe amputation 01/19/25 CT reviewed. Osteomyelitis noted to hallux Vascular studies show normal ABIs. Patient can continue to follow up with Dr. Azar outpatient Patient is to be partial weightbearing to right heel in surgical shoe. Infectious disease consulted. Appreciate recommendations Dressing: Xeroform, 4x4s, ABD, Kerlix and HEDY bandage. Recommend home health care or placement to facility for continued management. Patient is okay to be discharged from podiatry perspective once medically cleared by all other specialities Patient to follow up next Friday01/25/25 in office. Admission and Anticipated Discharge Date Admission Date: January 19, 2025 Subjective Patient is S/P right hallux amputation 01/19/25. Discussed with patient about smoking cessation. Is taking medication for pain control. States that he is doing well overall. No new pedal complaints. Patient to be discharged today and follow up with ia outpatient on friday01/25/25. Review of Systems Review of Systems: Reviewed all systems and are consistent with history and physical Physical Exam Constitutional: WD/WN, vitals as above Skin: Dressing intact to right foot. Dressing clean dry and intact today withouth any strikethrough bleeding. Results & Data Results & Data Vital Signs (Past 12 Hours) Vital Signs Temp Pulse Resp BP Pulse Ox O2 Del Method 01/20/25 23:56 Room Air 01/20/25 22:09 36.9 C 64 16 135/81 97 Room Air
[2025-01-21 07:30] VITALS: RESP 17
[2025-01-21 09:04] LABS: Alanine Aminotransferase 6.0 U/L (7-52); Albumin Globulin Ratio 1.4 (0.9-2); Alkaline Phosphatase 61.0 U/L (34-104); Anion Gap 7.0 (3-11); Bilirubin,Total 0.4 mg/dl (0.2-1.0); Blood Urea Nitrogen 10.0 mg/dl (6-23); Calcium 8.6 mg/dl (8.6-10.3); Carbon Dioxide 24.0 mmol/L (21-32); Chloride 107.0 mmol/L (98-107); Globulin 2.5 gm/dl (2.5-4.0); Glucose 110.0 mg/dl (70-99(Fasting)); Potassium 4.0 mmol/L (3.5-5.1); Sodium 138.0 mmol/L (136-145); Total Protein 6.0 gm/dl (6.0-8.3)
[2025-01-21 09:05] LABS: Hematocrit (blood only) 43.1 % (42.0-52.0); Hemoglobin 14.2 g/dl (14.0-18.0); Immature Granulocytes # (auto) 0.03 K/uL (0.01-0.20); Immature Granulocytes % (auto) 0.3 %; Mean Corpuscular Hemoglobin 27.3 pg (25.0-34.0); Mean Corpuscular Volume 82.9 fL (80.0-100.0); Platelet Count 230 K/uL (130-400); RDW Standard Deviation 43.1 fL (36.4-46.3); Red Blood Count 5.20 M/uL (4.70-6.10); White Blood Count 9.28 K/ul (4.8-10.8)
[2025-01-21] MEDS ORDERED: MoRPHine SULFATE 2 MG/ML CARP IV PRN ×2 (11:58)
[2025-01-21] MEDS: VANCOMYCIN LEVEL ONE (12:31)
[2025-01-21 12:35] VITALS: BP 112/74; TEMP 97.9; O2SAT 97
--- NOTE | 2025-01-21 12:52 | Infectious Disease Progress Nt ---
Date of Service January 21, 2025 Assessment & Plan (1) Right hallux osteomyelitis: Plan ID Problem List: # Right hallux wound c/b osteomyelitis # PAD Impression: Mario West is a 59-year-old man with history of PAD, DVT s/p thrombectomy 06/2024, tobacco use disorder, chronic R hallux wound, who was sent by his podiatry to [facility] on 01/19/25 for R big toe infection c/b osteomyelitis and planned amputation. ID is consulted for R hallux osteomyelitis. The patient has a chronic R big toe wound. It has been recently noted to be blackened with the nail sloughing off. The patient was sent to [facility] on 01/19/25 for toe amputation. No fevers, chills, shortness of breath, cough, abdominal pain, n/v/d reported. He has been feeling well aside from his toe wound. He did report a dog scratch 05/2025 that resulted in the affected toe becoming erythematous and swollen and resulting in a 2 week hospital stay requiring IV antibiotics and podiatry follow-up. Upon presentation, afebrile, WBC 10.61. X-ray showed a 1.5cm area of lucency distally at first proximal phalanx, morphology concerning for osteomyelitis. CT R foot showed soft tissue ulcer and soft tissue gas at R first toe c/f gangrene; acute osteomyelitis at distal first proximal phalanx. He was started on vancomycin and pip-tazo. He is planned for toe amputation with podiatry today 01/19. Pt was not reported to have been on outpatient abx prior to admission. Discussion Pt with chronic R hallux wound c/b osteomyelitis. S/p R great toe amputation on 01/19. OR findings of gangrene and purulence of the R hallux. After disarticulation at the MPJ, the head of the 1st metatarsal bone was noted to be healthy without e/o infection to the joint. Primary closure was performed. On 01/20, I discussed with Dr. Anton. The first metatarsal looked healthy and low suspicion for residual osteomyelitis at this time (no bone path or cultures of the remaining metatarsal were taken). No recent prior outpatient cultures/micro data were obtained, per podiatry. Pt was not on any outpatient abx prior to admission. He was started on vancomycin and pip-tazo on the same day that he went to the OR. Can continue vancomycin and pip-tazo for now pending OR Cx. Thus far, multiple Cx with only mixed skin microbiota; the R hallux and removed R hallux bone Cx have few GPCs on gram stain. Per podiatry, low suspicion for residual osteomyelitis, therefore planning to treat for SSTI. If OR Cx remain NGTD and patient will be discharging, then can change to empiric doxycycline and Augmentin to complete a 10-day course for SSTI. Would ensure close f/u with podiatry and f/u of the remaining cultures. Recommendations: - Can continue vancomycin and pip-tazo while inpatient pending OR Cx - If patient will be discharging, then can change to empiric doxycycline 100 mg PO BID and Augmentin 875 mg PO BID to complete a 10-day course for SSTI (through 01/28/25) - F/u 01/19 OR Cx until finalized, would ensure follow-up of final culture results as an outpatient - Ensure close follow-up with podiatry, wound care, and primary care Plan discussed with primary team. Thank you for letting ID participate in the care of this patient. ID will sign off at this time. If questions, please contact the [facility] at [phone]. Edwige Aggarwal MD, MHS Infectious Diseases [facility]/ID Connect ID Connect direct line: [phone] Admission and Anticipated Discharge Date Admission Date: January 19, 2025 Subjective This patient recommendation is based on a telemedicine consult request which was completed asynchronously through chart review and information provided by the primary physician. The patient was not seen or examined today. The evaluation is consultative in nature and all patient care and treatment decisions can either be accepted or rejected by the patient's primary hospital-based treating physician using their own independent medical judgment for their patient. PLEASE NOTE: E-consult was performed for this visit given technical issues with the telepresenter equipment. Time Spent Reviewing Chart: 31+ minutes - Afebrile - Per NINI Robledo to discharge and patient may discharge today Results & Data Vital Signs (Past 12 Hours) Vital Signs Temp Pulse Pulse Resp BP Pulse Ox O2 Del Method 01/21/25 12:33 36.6 C 70 17 112/74 97 Room Air 01/21/25 07:28 36.5 C 56 L 17 128/82 98 Room Air 01/21/25 07:10 Room Air Diagnostic Findings Diagnostics: 01/19 CT R foot 1. Soft tissue ulcer and soft tissue gas at the great toe suggesting gangrene. 2. Acute osteomyelitis distally at the first proximal phalanx. 3. Otherwise as described. 01/19 CXR R foot: There is a 1.5 cm area of lucency distally at the first proximal phalanxFindings consistent with osteomyelitis distally at the first proximal phalanx. Micro Data: 01/20 BCx x2 (After abx): NGTD 01/19 R foot Cx R hallux: low counts probable skin microbiota; g/s with rare GPCs 01/19 R foot Cx R hallux bone: low counts probable skin microbiota; g/s with rare GPCs 01/19 R foot Cx R hallux tissue: low counts probable skin microbiota; g/s with no organisms Antibiotic Summary: vancomycin (01/19 present) pip-tazo (01/19 present)
[2025-01-21 15:27] VITALS: PULSE 56
--- NOTE | 2025-01-21 15:35 | Discharge Summary ---
Date of Service January 21, 2025 Admission HPI Per Admitting Provider Mario West is a 59 y/o M with a past medical hx of PAD, DVT s/p thrombectomy in June, tobacco use disorder and chronic R. hallux infection and patient was sent by outpatient market development analyst for admit to [facility] for toe amputation surgery. Patient's R. big toe is blackened with ischemia and nail sloughing off, some erythema present under open toe nail. Podiatry team with [facility] and Dr. Mazariegos will be performing toe amputation surgery and patient is amenable to this plan. Patient denies fevers, chills, headaches, chest pain, palpitations, SOB, cough, wheeze, abdominal pain, nausea, and vomiting. Patient reports that he is in "perfect physical condition" other than his big toe. Patient reports that he has feeling in all extremities and reports mild soreness of the toe that is moderately exacerbated by touch and wearing shoes. Patient reports that a dog scratch last May resulted in the affected toe becoming erythematous and swollen and resulting in a 2 week hospital stay requiring IV a ntibiotics and podiatry follow-up. Patient reports that his toe was not blackened during this time. Patient typically uses topical antibiotic cream and wraps R. big toe. Patient reports that he only takes a baby aspirin daily and calcium supplement as his regular medications. Patient is hemodynamically stable, and has no acute complaints or concerns other than feeling hungry. Admission Exam Per Admitting Provider General: patient resting comfortably, NAD, non-toxic in appearance, answers questions appropriately. Skin: warm, dry, intact HEENT: NC/AT, anicteric sclera, conjunctiva without injection, moist mucus membranes. Heart: +S1/S2, regular, no m/r/g Lungs: equal air entry bilaterally, no rales/rhonchi/wheezes Abd: +BS, soft, NT/ND Ext: warm, no clubbing/cyanosis. R. Hallux w/ necrosis of big toenail w/ edema and erythema. Blackened toenail sloughing with underlying erythematous dermis seen from open wound. Tender to light palpation. Neuro: nonfocal, speech intact, no facial droop, moving all extremities. Principal Diagnosis 1. S/P Right Great Toe Amputation for Right hallus Osteomyelitis and Gangrene Discharge Exam Constitutional: Well appearing, No acute distress, PILCCOD: Negative HEENT: Atraumatic, Normocephalic, No conjunctival injection CVS: S1 S2 no murmur, Regular Rhythm, no LE edema Respiratory: BL equal air entry with NVBS. No rhonchi, wheezes, or crackles. No increased work of breathing GI: Soft, Nondistended, Nontender, Normal Bowel sounds + MSK: No gross deformities noted Skin: Warm, Dry, No rashes Neuro: Alert, Oriented to TPP, No Focal deficit Psych: Mood and Affect congruent, Cooperative on exam Discharge Data Allergies Allergy/AdvReac Type Severity Reaction Status Date / Time No Known Allergies Allergy Unverified 01/19/25 10:59 Consultations 01/19/25 10:07 ED Decision to Admit Stat 01/19/25 13:39 Consult Infectious Diseases Routine Procedures Performed Operation Date: 01/19/25 10:50 Actual Procedures p Right Great Toe Amputation(Right) - Gigi Anton DPM Ordered Studies 01/19/25 09:03 CT foot RT w con Stat US ankle brachial index [US ankle/brachial index ltd] Stat Hospital Course (1) Right hallux osteomyelitis: Lc West is a 59 y/o M with a past medical hx of PAD, DVT s/p thrombectomy in June, tobacco use disorder and chronic R. hallux infection and patient was sent by outpatient market development analyst for admit to [facility] for toe amputation surgery. #S/P Right Great Toe Amputation for Right hallus Osteomyelitis and Gangrene -Switch to oral antibiotics -Recommend Augmentin BID for 7 days - For Pain Management: Percocet q6hr as needed for pain -Followup with PCP and Podiatry in the outpatient Total Time Total Time Spent Total Time Spent (In Minutes): See attending attestation Discharge Plan Discharge Items Patient Disposition: Home - Self-Care Reason For Visit: R, HALLUX OSTEMYELITIS Discharge Diagnosis: Osteomyelitis Condition on Discharge: Good Activity: Per Instructions section Non-emergency contact: Primary Care Provider Call non-emergency contact if: you have any medication questions, your symptoms worsen and your rectal temperature is above 100.4 Follow-up/Referrals: PCP,NO [Primary Care Provider] - Diet: Heart Healthy Addtl Attending Provider Instructions: You were in the hospital due to right toe and bone infection. You were taken to the OR where the toe was amputated to controlled infection. You will be sent home with antibiotics for 7 days. - take Augmentin 875 mg twice a day for 7 days. - Follow up with Dr. Anton on 01/[address] [place] [address] [place], [place] [id number] - will sent Ste[place]oe for pain- take 1 tab as needed for pain Pending Studies at Discharge: Yes (blood cultures) Stand-Alone Forms: My [facility] [employer], Smoking Cessation Medications and DC Order Prescriptions: New amoxicillin-pot clavulanate 875-125 mg tablet 1 tab PO BID Qty: 14 0RF oxycodone-acetaminophen 5-325 mg tablet 1 tab PO Q8H PRN (Reason: pain) 5 Days Qty: 15 0RF Discharge Orders: Discharge Order (Routine); Ordered 01/21/25 Ordered By: Jesus Hawthorne Admission Data Admit Date/Time: 01/19/25 11:34 Attending Provider: Paul Tyson Admit Provider: Ric Gardner Primary Care Provider: PCP,NO Other Providers: Tessa Sorto Other Interventions: Discharge Summary Assessment (RN) Last Done: 01/21/25 15:22 Supervising Physician Co-Signing Physician Notes Attending attestation Pt seen and examined in concert with Dr. Islas. In agreement with the documented findings as noted in the resident documentation with any exceptions or additions as noted here. Patient eager to be discharged today and reports pain well controlled, 0/10 and engaged for support in outpatient setting. VS as noted. On examination, S1/S2 nl RRR no MCG. CTAB. Abd NT/ND BS+ve Right hallux osteomyelitis s/p amputation - transition to PO augmentin as noted with outpatient oxy/APAP to complete course with close follow up with PCP and podiatry. Else see resident documentation as noted Total attending physician time spent with this patient's care on the day of discharge: 35 minutes. Resident Activity Tracking Resident Involvement: Resident Care Provided Care Provided: Adult Hospital Medicine
[2025-01-22] MEDS ORDERED: VANCOMYCIN LEVEL ONE (11:30)
== END 2025-01-21 16:15 | disposition home or self-care (01) | DRG 504 ==
LOC: ED 07:57 → SUATTDRO 11:34 → 3E 11:34

== ENCOUNTER 2025-03-30 14:15 | Inpatient (IN) ==
--- NOTE | 2025-03-30 14:55 | Emergency Department Note ---
Impression & Plan Suicidal ideation, Homicidal ideation ED Provider Note CHIEF COMPLAINT: Agitation, feels unsafe HISTORY OF PRESENT ILLNESS: This 59-year-old male patient no significant past medical history presents to the emergency department with complaints of feeling agitated. He states he feels like he wants to hurt someone. He does not feel comfortable in his own skin. He denies any psychiatric history. The patient does not answer questions regarding suicidal or homicidal ideation. He states he does not drink alcohol. He does live at home with his son. He states he did not tell his son he was coming in but had a friend drive him to the hospital. REVIEW OF SYSTEMS: A review of systems was performed with positives and pertinent negatives listed in the history of present illness. 10 systems were reviewed and are otherwise negative. ALLERGIES: see below MEDICATIONS: see below PMH: see below SOCIAL HISTORY: see below DDx: acute medication reaction, infectious etiology, alcohol intoxication, substance abuse, suicidal ideation, homicidal ideation among others. PHYSICAL EXAM: Vital signs reviewed. General: Well-appearing 59-year-old male, in no significant distress. HEENT: No conjunctival injection, PERRLA, neck supple. Atraumatic. Cardiovascular: Regular rate and rhythm, no extra sounds. Pulmonary: Clear to auscultation bilaterally, normal work of breathing. Abdomen: Soft, nontender, nondistended, positive bowel sounds. Musculoskeletal: Atraumatic, no peripheral edema. Neurologic: Patient awake alert and oriented x 3, speech is clear Psych: Positive SI and positive HI with no clear plan. Skin: Warm, dry, no rash EMERGENCY DEPARTMENT COURSE/MDM: this patient was evaluated and appeared to be in no significant distress. Ativan 1 mg sublingually. Patient was medically cleared and Referred to the psychiatric pillowcase cutter for admission. The patient was accepted by [facility] on a voluntary basis. DISPOSITION: admission Past Med/Surg History Problem List (Updated 03/30/25 @ 23:52 by Keturah Thorpe MD) Homicidal ideation (Acute) Suicidal ideation (Acute) Medical History PVD (peripheral vascular disease) Right hallux osteomyelitis Surgical History Status post amputation of right great toe Social History Smoking Status: Current every day smoker Tobacco Type: Cigarettes Hx Alcohol Use: Yes Alcohol type: beer Hx Substance Use: Yes Last Used Substance: Days (ago) Preferred Language: Qatari Communication Ability: Effective Sheet Sewer Required: No Beliefs That Will Affect Care: None Current Living Situation: Alone Feels Safe at Home: Yes Gender Identity: Male Assistive Devices: None Allergies Allergies Allergy/AdvReac Type Severity Reaction Status Date / Time No Known Allergies Allergy Unverified 01/19/25 10:59 Home Meds Home Medications Medication Instructions Recorded Confirmed No Known Home Medications 03/30/25 03/30/25 Results & Data (ED) Vital Signs Vital Signs - 24 hr 03/30/25 14:20 03/30/25 16:20 03/30/25 18:34 Temperature 36.6 C Temperature Source Oral Pulse Rate 98 H Pulse Rate [Finger] 78 76 Respiratory Rate 18 16 16 Respiratory Effort / Characteristics Non-Labored Spontaneous Respiratory Depth Normal Blood Pressure 160/102 H Blood Pressure [Left Arm] 143/84 H 138/91 Blood Pressure Mean 121 Blood Pressure Mean [Left Arm] 103 106 Blood Pressure Position [Left Arm] Semi-fowlers Pulse Oximetry 97 97 97 Oxygen Delivery Method Room Air Room Air Sepsis Recent Fever Within 48 Hours No Sepsis New/Unexplained Change in Mental Status No Sepsis Action Taken by Nursing No Action Required Home Medications Current Medication List: was personally reviewed by me Laboratory Data Attestation: I reviewed the patient's lab results. 03/30/25 14:37 03/30/25 14:37 Lab Results 03/30/25 Range/Units 14:37 WBC 10.22 (4.8-10.8) K/ul RBC 5.92 (4.70-6.10) M/uL Hgb 15.8 (14.0-18.0) g/dl Hct 49.0 (42.0-52.0) % MCV 82.8 (80.0-100.0) fL MCH 26.7 (25.0-34.0) pg MCHC 32.2 (32.0-36.0) g/dL RDW Std Deviation 42.2 (36.4-46.3) fL RDW Coeff of Serenity 14.0 (11.5-14.5) % Plt Count 279 (130-400) K/uL MPV 10.3 (9.4-12.4) fL Immature Gran % (Auto) 0.4 % Neut % (Auto) 62.8 % Lymph % (Auto) 24.7 % [place] % (Auto) 8.8 % Eos % (Auto) 2.8 % Baso % (Auto) 0.5 % Neut # (Auto) 6.42 (1.40-6.50) K/uL Lymph # (Auto) 2.52 (1.20-3.40) K/uL [place] # (Auto) 0.90 H (0.11-0.59) K/uL Eos # (Auto) 0.29 (0.00-0.50) K/uL Baso # (Auto) 0.05 (0.00-0.20) K/uL Immature Gran # (Auto) 0.04 (0.01-0.20) K/uL Sodium 140 (136-145) mmol/L Potassium 4.5 (3.5-5.1) mmol/L Chloride 106 (98-107) mmol/L Carbon Dioxide 28 (21-32) mmol/L Anion Gap 6 (3-11) BUN 16 (6-23) mg/dl Creatinine 0.81 (0.6-1.4) mg/dl Est Cr Clr Drug Dosing 88.2 ml/min eGFR 102.84 BUN/Creatinine Ratio 19.8 (10-20) Glucose 103 H (70-99(Fasting)) mg/dl Calcium 9.8 (8.6-10.3) mg/dl Total Bilirubin 0.3 (0.2-1.0) mg/dl AST 15 (13-39) U/L ALT 11 (7-52) U/L Alkaline Phosphatase 92 (34-104) U/L Total Protein 7.5 (6.0-8.3) gm/dl Albumin 4.2 (3.4-5.0) gm/dl Globulin 3.3 (2.5-4.0) gm/dl Albumin/Globulin Ratio 1.3 (0.9-2) TSH 3.032 (0.300-4.500) uIu/ml Urine Color Yellow Urine Appearance Clear (Clear) Urine pH 7.0 (4.5-7.5) Ur Specific [place] 1.019 (1.000-1.030) Urine Protein Negative (Negative) Urine Glucose (UA) Negative (Negative) Urine Ketones Negative (Negative) Urine Blood Negative (Negative) Urine Nitrite Negative (Negative) Urine Bilirubin Negative (Negative) Urine Urobilinogen Negative (Negative) Ur Leukocyte Esterase Negative (Negative) Urine Comment Salicylates < 3.0 L (3.0-30) mg/dl Urine Opiates Screen Neg (Neg) Ur Methadone, Qual Neg (Neg) Urine Fentanyl Screen Neg (Neg) Acetaminophen < 3 L (10-30) ug/ml Urine Barbiturates Neg (Neg) Ur Phencyclidine (PCP) Neg (Neg) U Amphetamin/Meth Scrn Neg (Neg) MDMA (Ecstasy) Screen Neg (Neg) U Benzodiazepines Scrn Neg (Neg) Ur Cocaine Metabolite Neg (Neg) U Marijuana (THC) Screen Neg (Neg) Ethyl Alcohol mg/dL < 10.0 (<10.0) mg/dl SARS-CoV-2, RNA, NAAT NEGATIVE (NEGATIVE) Administered Medications Discontinued Medications Lorazepam (Lorazepam 1 Mg Tab) 1 mg SL NOW STA Stop: 03/30/25 15:12 Last Admin: 03/30/25 15:16 Dose: 1 mg Documented By: CAP Discharge Plan Visit Data Chief Complaint: Mental Health Evaluation Stated Complaint: ED Provider: Keturah Thorpe Discharge Problem: Suicidal ideation, Homicidal ideation Patient Disposition: Admitted As Inpatient Condition: Fair Discharge Instructions Interventions: ED Discharge Assessment Last Done: 03/30/25 20:07
[2025-03-30 15:02] LABS: Appearance Urine Clear (Clear); Glucose Urine UA Negative (Negative)
[2025-03-30 15:04] LABS: Hematocrit (blood only) 49.0 % (42.0-52.0); Hemoglobin 15.8 g/dl (14.0-18.0); Immature Granulocytes # (auto) 0.04 K/uL (0.01-0.20); Immature Granulocytes % (auto) 0.4 %; Mean Corpuscular Hemoglobin 26.7 pg (25.0-34.0); Mean Corpuscular Volume 82.8 fL (80.0-100.0); Platelet Count 279 K/uL (130-400); RDW Standard Deviation 42.2 fL (36.4-46.3); Red Blood Count 5.92 M/uL (4.70-6.10); White Blood Count 10.22 K/ul (4.8-10.8)
[2025-03-30 15:13] LABS: Acetaminophen < 3 ug/ml (10-30); Salicylate < 3.0 mg/dl (3.0-30)
[2025-03-30] MEDS: LORazepam 1 MG TAB SL STA (15:16)
[2025-03-30 15:22] LABS: Alanine Aminotransferase 11.0 U/L (7-52); Albumin Globulin Ratio 1.3 (0.9-2); Albumin Level 4.2 gm/dl (3.4-5.0); Alkaline Phosphatase 92.0 U/L (34-104); Anion Gap 6.0 (3-11); Bilirubin,Total 0.3 mg/dl (0.2-1.0); Blood Urea Nitrogen 16.0 mg/dl (6-23); Calcium 9.8 mg/dl (8.6-10.3); Carbon Dioxide 28.0 mmol/L (21-32); Chloride 106.0 mmol/L (98-107); Creatinine Clr Calc Pharmacy 88.2 ml/min; Globulin 3.3 gm/dl (2.5-4.0); Glucose 103.0 mg/dl (70-99(Fasting)); Potassium 4.5 mmol/L (3.5-5.1); Sodium 140.0 mmol/L (136-145); Total Protein 7.5 gm/dl (6.0-8.3)
[2025-03-30 15:27] LABS: Amphetamines+Metham, Urine Neg (Neg); MDMA (Ecstacy), Urine Neg (Neg); Marijuana, Urine Neg (Neg)
[2025-03-30 15:36] LABS: Thyroid Stimulating Hormone 3.032 uIu/ml (0.300-4.500)
[2025-03-30] MEDS ORDERED: ALUMINUM/MAGNESIUM SUSP 30 ML UDC PO PRN (20:38)
[2025-03-30] MEDS ORDERED: BISMUTH SUBSALICYLATE 262 MG CHEW PO PRN (20:38)
[2025-03-30] MEDS ORDERED: MAGNESIUM HYDROXIDE SUSP 30 ML UDC PO PRN (20:38)
[2025-03-30] MEDS ORDERED: SODIUM CHLORIDE 0.65% NA SOLN 45 ML (OCEAN) PRN (20:38)
--- NOTE | 2025-03-31 08:49 | History & Physical ---
Date of Service March 31, 2025 Impression / Recommendations Impression TRE ALONSO is a 59-year-old M who currently lives in [place] with his son, has a history of polysubstance use disorder (cocaine, alcohol), and was admitted on 03/30/25 18:43 on a 201 voluntary commitment for passive SI. Diagnostically consistent with major depressive disorder with irritability and passive SI and HI toward legal system due to his ongoing legal issues and new house arrest. Discussed medication treatment options in detail. Discussed risks, benefits and alternatives. Patient would like to start and consented to sertraline for depression and anxiety and trazodone for depression and insomnia. Reviewed side effects including but not limited to: GI, WOODS and sedation with trazodone. He declined option to try Depakote for recurrent headaches and off-label for irritability/anger. The patient's use history and negative consequences suggests substance use disorder. Motivational interviewing was done as a brief intervention. Intervention was greater than 5 minutes in length and included assessing readiness to quit, advice on how to reduce or abstain and to set a specific goal for this hospitalization. target worker will also assist in anticipating barriers to reducing or abstaining from substance use and in problem-solving for solutions to those problems while arranging for referral to appropriate treatment. The patient is in contemplative to action stage with regards to transtheoretical model of change. Recommended decreasing consumption due to disinhibiting effects and potential for worsening psychiatric symptoms. Acute risk of harm to others is elevated for specific individuals outside of the hospital involved in his legal cases (i.e. police, energy control officer, judges). He denies any HI toward anyone else. His intent remains unclear, he states he would have intent if things do not change and it's difficult to predict what will happen, for now he is safe in the inpatient setting and has no access to guns in the inpatient or outpatient setting (confirmed with his son) which was his stated means of harm. Duty to warn will need to be done prior to discharge, treatment will focus on identifying driving factors of anger (certainly depression and stress from legal challenges are two of these) and ways to modify and lessen his acute and chronic risk of harm to others. No known history of violence. Overall I spent a total of 75 minutes for this admission including review of chart records, review of labwork, direct evaluation of the patient, counseling the patient, ordering medication, risk assessment, discussion with the psychiatric liason RN and documentation in the electronic health record. (1) Major depressive disorder with current active episode: (2) Homicidal ideation: (3) Suicidal ideation: (4) Anxiety: (5) Polysubstance use disorder: (6) Status post amputation of right great toe: Plan 03/31/2025: The patient was admitted to the [facility] ([facility]) on q15 min checks (behavioral with suicide precautions) for safety. The patient will participate in group, recreational, and milieu therapies and will be offered additional individual and family sessions as clinically appropriate. -start sertraline 50mg daily -start trazodone 50mg HS with additional 50mg HS prn insomnia -Consider Depakote ER 500mg HS in the future for possible migraine and irritability, he declines at this time -SW to explore CM referral, clarify PCP Inventory Assets Strengths: supportive relationships, willing to get treatment Needs: safety and stabilization, medication adjustment, additional coping skills, increased outpatient services Suicide Risk Level Suicide Risk Level: High-Moderate (q15 min suicide checks) (depression with irritability and SI but feels safe in the hospital and feels able to ask for support) Suicide Risk Level Comments: Risk Factors Assessment Male: Yes : Yes Do You Have Access To A Gun?: No Health Problems: Yes Mental Health Diagnoses: Yes Substance Use Disorders: Yes Previous Attempt: No Family History of Suicide: Yes Previous Psychiatric Hospitalization: No Hopelessness: Yes Protective Factors Assessment : No Responsible for Young Children: No Employed: No Stable Relationships: Yes Supportive Family: Yes (son) Psychiatric History Identifying Data TRE ALONSO is a 59-year-old M who currently lives in [place] with his son, has a history of polysubstance use disorder (cocaine, alcohol), and was admitted on 03/30/25 18:43 on a 201 voluntary commitment for passive SI and HI. Chief Complaint "I just feel like a burden, everything is just bad". History of Present Illness He presents for psychiatric admission for worsening depression and SI and HI in the context of multiple psychosocial stressors including of his father, blind in right eye, right toe s/p amputation, finances. Tre presents for psychiatric admission with thoughts that life was not worth living anymore and feeling like a burden. He is currently living with his son due to being out of work following a toe amputation infection on his right toe which has since healed without ongoing pain or need for antibiotics. Recent stressors include t he of his father and dealing with his toe amputation. He cannot identify any target symptoms or things that would make his life better. He feels stuck because he can't return to work out of state due to ankle bracelet. He's very frustrated with the police. He states "Police, judges, probation officers need to stay away from me". He feels they are all corrupt and make up lies to get him in trouble and "they all need to go away". He states "it just keeps getting worse and all they need to do is tell a lie. I don't want nothing to do with them, I don't want none of them around me. You cannot trust nobody in that system, it's sickening". He states "I'm tired of everything and want left alone". Struggles to stay asleep. Appetite has been stable. He endorses depressive symptoms including tearfulness, irritability, anhedonia (typically likes to harvey and fish), decreased motivation, helplessness, hopelessness, worthless, decreased energy. SI has been occurring every now and then "sometimes", but never thought of a plan. He also endorses symptoms of anxiety including generalized worries, shakiness, easily overwhelmed and panic attacks (couple times per year). He reports significant anger and frustration with the legal system stating he is currently on probation for past DUIs and expresses intense hostility toward police, probation offers, Judges on the court system which he describes as corrupt. He feels unable to return to work out of state due to his legal situation and home arrest and describes feeling that "everything was just bad" and that there is nothing that can be done to change his circumstances. He describes "police, the county are a whole bunch of crooked sons of bi*ches" and explains "if they do not leave me alone soon, I'll start shooting them one by one, every one of them. Anyone that comes around." He continues "I am done with them, they are a bunch of lying crooked co*k suckers and I am done with them, everyone of them. You want to find a crooked photostatic copy maker just tow picker the phone and call". Asked about if he is venting his anger or thinks he would try to cause harm or kill these individuals he states: "I do not want nothing to do with any of them, they better stay away from me all of them, they are liars, they're a bunch of crooked co*k suckers that is what it is, they have nothing to do with the law there is no long enforcement in this state the whole court system is a swamp, it is corrupt". Asked if he thinks he would ever go through with trying to harm them he states "I do not know. If something ain't done that is what needs to be done." He describes "I have dealt with these people for I don't know how many years and years it just keeps getting worse and they keep getting away with more and more and more all they have to do is tell lies and that is it and you are found you are guilty I ain't doing it no more." He states "But I am just tired of them. I am tired of everything. I am just tired.". He reports no previous psychiatric diagnoses but has a history of substance use including cocaine and alcohol and marijuana though he states his alcohol use was problematic "way back" and he drank "a long time" ago. Currently he reports having a beer occasionally with his last alcohol use approximately 2 weeks ago describing that when he does have a beer takes him a month to drink a sixpack. He also reports using marijuana nightly before bed to help with sleep. He is not currently prescribed any psychiatric medications. Psychiatric ROS notable for no current nor history of symptoms of shanae, psychosis, PTSD, OCD, self-harm nor eating disorder. 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 He denies having any history of glaucoma in his left eye but also has not seen an eye doctor in many years. States last time he was seen his left eye had normal pressure. He also reports significant dental problems stating all his teeth are bad and are "cutting my tongue into a serpentine" noting he has not seen a dentist in 40 years. He declines option for Orajel but is willing to consider going to a dentist after this hospitalization noting "I need to". Past Psychiatric History Current Psychiatric Diagnosis: Unspecified depressive disorder Outpatient Services: none Previous Psych Admissions: none Do You Have Access To A Gun?: No History of Previous Suicide Attempt: No Past Medication Trials: none Past Head Trauma/Neuro History History of Concussion/Seizure: Yes (hx of concussions) Allergies Allergy/AdvReac Type Severity Reaction Status Date / Time No Known Allergies Allergy Unverified 03/31/25 10:45 Home Medications Medication Instructions Recorded Confirmed Type No Known Home Medications 03/30/25 03/30/25 History Family History Family History of: Alcoholism/Drug Abuse (both sides) and Suicide Completion (paternal uncle, maternal cousin) Alcohol History Hx of Alcohol Use Over the Past 12 Months: No AUDIT Total Score: 0 Rare alcohol use, none in about 2 weeks Smoking Use Have You Smoked or Used Tobacco Products in the Last 30 Days: Yes tobacco type: cigarettes and smokeless tobacco Smoking Status: Current every day smoker Smoking packs per day: 0.5 Substance History Hx of Prescription Med Misuse Over the Past 12 Months: No Hx of Over the Counter Med Misuse Over the Past 12 Months: No Hx of Inhalent Misuse Over the Past 12 Months: No Hx of Organic Substance Use Over the Past 12 Months: Yes (MJ) Hx of Illegal Substances/Street Drug Use Over Past 12 Months: No Problems as a Result of Past Substance Use: Arrested, Loss of [facility] Administrator's License and Uncontrolled Anger Problems as a Result of Past Substance Use Comments: DUI from Marijuana Use cannabis use in past for help with sleep Personal History Living Arrangements: Home Highest Grade Completed: High School Graduate Employment Status: Unemployed (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) Marital Status: Number Of Children: son, daughter (no contact with) Beliefs That Will Affect Care: None Current Legal Problems: Yes (probation for DUIs) Hx Legal Problems: Yes (prior DUI) Hx Traumatic Life Events: Yes Patient History Medical History PVD (peripheral vascular disease) Right hallux osteomyelitis Surgical History Status post amputation of right great toe Social History Smoking Status: Current every day smoker Tobacco Type: Cigarettes Hx Alcohol Use: Yes Alcohol type: beer Hx Substance Use: Yes Last Used Substance: Days (ago) Preferred Language: Mohawk Communication Ability: Effective Airport Baggage Screener Required: No Beliefs That Will Affect Care: None Current Living Situation: Alone Feels Safe at Home: Yes Gender Identity: Male Assistive Devices: None Review of Systems Review of Systems: All systems reviewed & are unremarkable except as noted in HPI & below (tooth pain, hasn't seen a dentist in about 40 years) Physical Exam Psychiatric: Orientation: alert and oriented x 3 Apperance: appropriately dressed and + disheveled Eye Contact: + fair eye contact Motor Behavior: no abnormal motor movements Speech: normal rate/rhythm/volume of speech Affect: + depressed affect and + irritable affect Mood: + depressed mood, + anxious mood and + irritable mood Thought Process: + concrete thought process Thought Content: reality based without delusions Suicidal Thoughts: denies suicidal plan and denies suicidal intent; + reports suicidal thoughts (intermittent passive thoughts ) Homicidal Thoughts: denies homicidal intent; + reports homicidal thoughts (to shoot police, energy control officer and judges) and + reports homicidal plan Hallucinations: no auditory hallucinations and no visual hallucinations Cognition: recent memory grossly intact, remote memory grossly intact, attention grossly intact and language grossly intact Estimated Intelligence: consistent with education level Insight: + limited insight Judgment: + limited judgement Vital Signs (Past 24 Hours): Last Vital Signs Temp 36.6 C 03/31/25 06:57 Pulse 64 03/31/25 06:57 Resp 16 03/31/25 06:57 BP 134/84 03/31/25 06:58 Pulse Ox 96 03/31/25 06:57 O2 Del Method Room Air 03/31/25 06:57 Exam Statement: A physical exam was performed in the ED by Dr. Thorpe for the purposes of medical clearance. I accept that physical as correct and adequate for the purposes of the inpatient physical exam. Results & Data ([facility]) Laboratory Results Laboratory Results - last 24 hr 03/30/25 14:37 WBC 10.22 RBC 5.92 Hgb 15.8 Hct 49.0 MCV 82.8 MCH 26.7 MCHC 32.2 RDW Std Deviation 42.2 RDW Coeff of Serenity 14.0 Plt Count 279 MPV 10.3 Immature Gran % (Auto) 0.4 Neut % (Auto) 62.8 Lymph % (Auto) 24.7 [place] % (Auto) 8.8 Eos % (Auto) 2.8 Baso % (Auto) 0.5 Neut # (Auto) 6.42 Lymph # (Auto) 2.52 [place] # (Auto) 0.90 H Eos # (Auto) 0.29 Baso # (Auto) 0.05 Immature Gran # (Auto) 0.04 Sodium 140 Potassium 4.5 Chloride 106 Carbon Dioxide 28 Anion Gap 6 BUN 16 Creatinine 0.81 Est Cr Clr Drug Dosing 88.2 eGFR 102.84 BUN/Creatinine Ratio 19.8 Glucose 103 H Calcium 9.8 Total Bilirubin 0.3 AST 15 ALT 11 Alkaline Phosphatase 92 Total Protein 7.5 Albumin 4.2 Globulin 3.3 Albumin/Globulin Ratio 1.3 TSH 3.032 Urine Color Yellow Urine Appearance Clear Urine pH 7.0 Ur Specific [place] 1.019 Urine Protein Negative Urine Glucose (UA) Negative Urine Ketones Negative Urine Blood Negative Urine Nitrite Negative Urine Bilirubin Negative Urine Urobilinogen Negative Ur Leukocyte Esterase Negative Urine Comment Salicylates < 3.0 L Urine Opiates Screen Neg Ur Methadone, Qual Neg Urine Fentanyl Screen Neg Acetaminophen < 3 L Urine Barbiturates Neg Ur Phencyclidine (PCP) Neg U Amphetamin/Meth Scrn Neg MDMA (Ecstasy) Screen Neg U Benzodiazepines Scrn Neg Ur Cocaine Metabolite Neg U Marijuana (THC) Screen Neg Ethyl Alcohol mg/dL < 10.0 SARS-CoV-2, RNA, NAAT NEGATIVE Current Inpatient Medications Current Inpatient Medications: Current Inpatient Medications Acetaminophen (Acetaminophen 325 Mg Tab) 650 mg PO Q4H PRN PRN Reason: Headache or Minor Fever Stop: 04/29/25 20:37 Al Hydrox/Mg Hydrox/Simethicone (Aluminum/Magnesium Susp 30 Ml Udc) 30 ml PO Q4H PRN PRN Reason: GI Upset Stop: 04/29/25 20:37 Bismuth Subsalicylate (Bismuth Subsalicylate 262 Mg Chew) 2 tab PO Q30M PRN PRN Reason: Loose Stool/Diarrhea Stop: 04/29/25 20:37 Hydroxyzine HCl (Hydroxyzine Hcl 25 Mg Tab) 50 mg PO HSZ PRN PRN Reason: Insomnia Stop: 04/29/25 20:37 Hydroxyzine HCl (Hydroxyzine Hcl 25 Mg Tab) 25 mg PO Q4H PRN PRN Reason: Anxiety Stop: 04/29/25 20:37 Magnesium Hydroxide (Magnesium Hydroxide Susp 30 Ml Udc) 30 ml PO DAILY PRN PRN Reason: Constipation Stop: 04/29/25 20:37 Miscellaneous (Remove Nicoderm Patch) 1 each N/A DAILY@[id number] [facility] Stop: 04/30/25 08:58 Nicotine (Nicotine 21 Mg/24 Hr Tdsy) 1 patch TD QAM [facility] Stop: 04/30/25 08:59 Nicotine Polacrilex (Nicotine Polacrilex 2 Mg Gum) 2 piece MT PRN PRN PRN Reason: Nicotine Withdrawal Symptoms Stop: 04/29/25 18:42 Sodium Chloride (Sodium Chloride 0.65% Na Soln 45 Ml ([place])) 1 - 2 sprays NA PRN PRN PRN Reason: Nasal Dryness/Congestion Stop: 04/29/25 20:37
[2025-03-31] MEDS: NICOTINE 21 MG/24 HR TDSY TD SCH (09:45)
[2025-03-31] MEDS: REMOVE NICODERM PATCH SCH (10:36)
[2025-03-31] MEDS: SERTRALINE HCL 50 MG TABLET PO SCH (11:10)
[2025-04-01 06:31] VITALS: O2SAT 97
--- NOTE | 2025-04-01 08:52 | Psychiatric Progress Note ---
Date of Service April 01, 2025 Impression / Recommendations Impression TRE ALONSO is a 59-year-old M who currently lives in [facility] with his son, has a history of polysubstance use disorder (cocaine, alcohol), and was admitted on 03/30/25 18:43 on a 201 voluntary commitment for passive SI. Diagnostically consistent with major depressive disorder with irritability and passive SI and HI toward legal system due to his ongoing legal issues and new house arrest. A: Ongoing depression with irritability, hopelessness and concerning statements of HI with potential plan and sense of being wronged by legal/government systems and individuals in the [place]. Demonstrates concerning lack of insight and judgment regarding violent statements and expresses hope for others to join in potential violence. Tolerating sertraline so far, will increase trazodone to target insomnia. Endorses violent ideation toward law enforcement and government officials, stating ideas about going on a shooting spree. Expresses belief that police and government officials are "trampling on the Constitution" and infringing on constitutional rights. States he would never shoot innocent people but considers law enforcement "not innocent people." Endorses preoccupation with constitutional rights and perceived government overreach. Discussed safety concerns in detail following patient's statements about "going on a shooting spree" during group therapy. He will be excused from group therapy for now due to distressing statements to other patients about violence. Acute risk of harm to others remains high and elevated. Overall, I spent a total of 50 minutes on this case including meeting with the p marlene, reviewing the chart, nursing report, multidisciplinary team meeting, orders, and documentation. (1) Major depressive disorder with current active episode: (2) Homicidal ideation: (3) Suicidal ideation: (4) Anxiety: (5) Polysubstance use disorder: (6) Status post amputation of right great toe: Plan 04/01/2025: -Increase trazodone to 100mg HS 03/31/2025: The patient was admitted to the [facility] ([facility] mental health unit) on q15 min checks (behavioral with suicide precautions) for safety. The patient will participate in group, recreational, and milieu therapies and will be offered additional individual and family sessions as clinically appropriate. -start sertraline 50mg daily -start trazodone 50mg HS with additional 50mg HS prn insomnia -Consider Depakote ER 500mg HS in the future for possible migraine and irritability, he declines at this time -SW to explore CM referral, clarify PCP Inventory Assets Strengths: supportive relationships, willing to get treatment Needs: safety and stabilization, medication adjustment, additional coping skills, increased outpatient services Suicide Risk Level Suicide Risk Level: High-Moderate (q15 min suicide checks) (depression with irritability and SI but feels safe in the hospital and feels able to ask for support) Suicide Risk Level Comments: Risk Factors Assessment Male: Yes : Yes Do You Have Access To A Gun?: No Health Problems: Yes Mental Health Diagnoses: Yes Substance Use Disorders: Yes Previous Attempt: No Family History of Suicide: Yes Previous Psychiatric Hospitalization: No Hopelessness: Yes Protective Factors Assessment : No Responsible for Young Children: No Employed: No Stable Relationships: Yes Supportive Family: Yes (son) Interval History Chief Complaint "[]". Review of Systems Sleep Information Total Hours of Sleep: 6.5 Meal Information Percent Meal Consumed - Breakfast: 100 Percent Meal Consumed - Lunch: 100 Percent Meal Consumed - Dinner: 100 Subjective Subjective Patient was seen & assessed and interval progress reviewed with treatment team. Needed encouragement to attend groups, sat on the periphery. He attended a few groups but declined to participate. No spontaneous interaction with peers or staff. Underlying irritability. He reports significantly disrupted sleep last night and did not request additional prn dose of trazodone. He'd like to try a higher dose of trazodone. No side effects from sertraline. He was removed from group therapy this morning after making concerning statements about going on a shooting spree. Asked about this he reflects on "I was upset" and "I don't know, I was mad" when asked to review what he said. He expresses anger toward law enforcement and government officials, stating he would like to shoot them because he believes they are "trampling on the Constitution" and infringing on civil and constitutional rights. He clarified that he would "never shoot innocent people" and specifically targets his anger toward police and those in authority positions rather than random civilians. When asked what prevents him from acting on these thoughts, he stated he is "afraid Ill run out of bullets" and fears being shot before completing what he feels needs to be done. He expresses profound hopelessness about the current state of the country, stating "it is hopeless" because people don't stand up for constitutional rights. He believes younger generations are too focused on their phones and indoctrinated by the educational system to understand what is happening. 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 He feels isolated in his concerns, stating "I feel like I'm the only person out there that even cares anymore about the Constitution." The patient has tried non-violent approaches to address his concerns but states "I've tried all them ways" and believes violence is "the only thing they understand." He expressed that those in power "beg for violence" and "want violence." When discussing potential consequences of violent action, he hopes others would "stand up behind him and join him." He denies any current concerns but wants to have his Snuff. Reviewed nicotine replacement options available to him in the hospital. Physical Exam Psychiatric Orientation: alert and oriented x 3 Apperance: appropriately dressed and + disheveled Eye Contact: + fair eye contact Motor Behavior: no abnormal motor movements Speech: normal rate/rhythm/volume of speech Affect: + depressed affect and + irritable affect Mood: + depressed mood, + anxious mood and + irritable mood Thought Process: + concrete thought process Thought Content: reality based without delusions Suicidal Thoughts: denies suicidal plan and denies suicidal intent; + reports suicidal thoughts (intermittent passive thoughts ) Homicidal Thoughts: denies homicidal intent (unclear); + reports homicidal thoughts (to shoot police, airplane first officer and judges) and + reports homicidal plan Hallucinations: no auditory hallucinations and no visual hallucinations Cognition: recent memory grossly intact, remote memory grossly intact, attention grossly intact and language grossly intact Estimated Intelligence: consistent with education level Insight: + poor insight Judgment: + poor judgement Vital Signs (Past 24 Hours) Last Vital Signs Temp 36.4 C 04/01/25 06:30 Pulse 80 04/01/25 06:30 Resp 18 04/01/25 06:30 BP 124/84 04/01/25 06:30 Pulse Ox 97 04/01/25 06:30 O2 Del Method Room Air 04/01/25 06:30 Results & Data ([facility]) Current Inpatient Medications Current Inpatient Medications: Current Inpatient Medications Acetaminophen (Acetaminophen 325 Mg Tab) 650 mg PO Q4H PRN PRN Reason: Headache or Minor Fever Stop: 04/29/25 20:37 Al Hydrox/Mg Hydrox/Simethicone (Aluminum/Magnesium Susp 30 Ml Udc) 30 ml PO Q4H PRN PRN Reason: GI Upset Stop: 04/29/25 20:37 Bismuth Subsalicylate (Bismuth Subsalicylate 262 Mg Chew) 2 tab PO Q30M PRN PRN Reason: Loose Stool/Diarrhea Stop: 04/29/25 20:37 Hydroxyzine HCl (Hydroxyzine Hcl 25 Mg Tab) 50 mg PO HSZ PRN PRN Reason: Insomnia Stop: 04/29/25 20:37 Hydroxyzine HCl (Hydroxyzine Hcl 25 Mg Tab) 25 mg PO Q4H PRN PRN Reason: Anxiety Stop: 04/29/25 20:37 Magnesium Hydroxide (Magnesium Hydroxide Susp 30 Ml Udc) 30 ml PO DAILY PRN PRN Reason: Constipation Stop: 04/29/25 20:37 Miscellaneous (Remove Nicoderm Patch) 1 each N/A DAILY@0859 [facility] Stop: 04/30/25 08:58 Last Admin: 04/01/25 08:40 Dose: Not Given Nicotine (Nicotine 21 Mg/24 Hr Tdsy) 1 patch TD QAM [facility] Stop: 04/30/25 08:59 Last Admin: 04/01/25 08:40 Dose: Not Given Nicotine Polacrilex (Nicotine Polacrilex 2 Mg Gum) 2 piece MT PRN PRN PRN Reason: Nicotine Withdrawal Symptoms Stop: 04/29/25 18:42 Sertraline HCl (Sertraline Hcl 50 Mg Tablet) 50 mg PO QAM [facility] Stop: 04/30/25 11:14 Last Admin: 04/01/25 08:39 Dose: 50 mg Sodium Chloride (Sodium Chloride 0.65% Na Soln 45 Ml ([place])) 1 - 2 sprays NA PRN PRN PRN Reason: Nasal Dryness/Congestion Stop: 04/29/25 20:37 Trazodone HCl (Trazodone Hcl 50 Mg Tab) 50 mg PO HS STEPHEN Stop: 04/30/25 21:59 Last Admin: 03/31/25 21:32 Dose: 50 mg Trazodone HCl (Trazodone Hcl 50 Mg Tab) 50 mg PO HS PRN PRN Reason: insomnia Stop: 04/30/25 11:01
[2025-04-02 06:19] VITALS: RESP 16
--- NOTE | 2025-04-02 09:13 | Psychiatric Progress Note ---
Date of Service April 02, 2025 Impression / Recommendations Impression TRE ALONSO is a 59-year-old M who currently lives in [facility] with his son, has a history of polysubstance use disorder (cocaine, alcohol), and was admitted on 03/30/25 18:43 on a 201 voluntary commitment for passive SI. Diagnostically consistent with major depressive disorder with irritability and passive SI and HI toward legal system due to his ongoing legal issues and new house arrest. A: Denying depression today, but it appears to be present. Certainly irritability remains a concern. It does appear he is starting to gain insight that he should not directly make statements of wanting to harm people, but he continues to place blame on others and say that they need punishment. So far, his concerns do appear to be reality based (for instance, he is angry that they public administration professor does not do a good job) rather than delusional. However the degree to which he is angry and the way he rationalizes violence is concerning. Notably there is some evidence that he at baseline has a tendency to disregard social norms for safety of others. it is also notable that there is some amount of hopelessness that remains. Acute risk of harm to others remains high and elevated. This afternoon he did sign a 72-hour notice, but this is the first day he has not made a direct threat of violence and did still discuss "punishment," so I'm not recommending discharge today. I did order as needed agitation medications, should symptoms escalate. So far he has maintained safe behavior here. Overall, I spent a total of 55 minutes on this case including meeting with the patient, reviewing the chart, nursing report, multidisciplinary team meeting, orders, and documentation. (1) Major depressive disorder with current active episode: (2) Homicidal ideation: (3) Suicidal ideation: (4) Anxiety: (5) Polysubstance use disorder: (6) Status post amputation of right great toe: Plan 04/02/25: - I ordered Augmentin 875 mg twice daily for 7 days, as well as Magic mouthwash and Orajel as needed - scheduled ibuprofen 800mg TID while here- -Zyprexa 5 mg every 6 hours p.o. as needed agitation or anxiety -Ativan 1 mg every 4 hours p.o. for agitation only -For severe unsafe behavior/agitation, Ativan 1 mg IM every 4 hours PRN, and Zyprexa 5 mg IM every 6 hours PRN -Pt signed 72 hour notice. 04/01/2025: -Increase trazodone to 100mg HS 03/31/2025: The patient was admitted to the [facility] ([facility] unit) on q15 min checks (behavioral with suicide precautions) for safety. The patient will participate in group, recreational, and milieu therapies and will be offered additional individual and family sessions as clinically appropriate. -start sertraline 50mg daily -start trazodone 50mg HS with additional 50mg HS prn insomnia -Consider Depakote ER 500mg HS in the future for possible migraine and irritability, he declines at this time -SW to explore CM referral, clarify PCP Inventory Assets Strengths: supportive relationships, willing to get treatment Needs: safety and stabilization, medication adjustment, additional coping skills, increased outpatient services Suicide Risk Level Suicide Risk Level: High-Moderate (q15 min suicide checks) (depression with irritability and SI but feels safe in the hospital and feels able to ask for support) Suicide Risk Level Comments: Risk Factors Assessment Male: Yes : Yes Do You Have Access To A Gun?: No Health Problems: Yes Mental Health Diagnoses: Yes Substance Use Disorders: Yes Previous Attempt: No Family History of Suicide: Yes Previous Psychiatric Hospitalization: No Hopelessness: Yes Protective Factors Assessment : No Responsible for Young Children: No Employed: No Stable Relationships: Yes Supportive Family: Yes (son) Interval History Chief Complaint "I need to see dentist." Review of Systems Sleep Information Total Hours of Sleep: 6.5 Meal Information Percent Meal Consumed - Breakfast: 100 Percent Meal Consumed - Lunch: 100 Percent Meal Consumed - Dinner: 100 Subjective Subjective Patient was seen & assessed and interval progress reviewed with [treatment team] [nursing and social work] Per nursing report: In community meeting yesterday, pt said he wished he could go on a shooting spree. he was subsequently excused from groups. after meeting with psychiatrist he later said he didn't remember saying that, and said he was "just really angry". he maintained safe behavior overnight. He tends to isolate to his room He has had poor hygiene. He is eating well. I met with the patient privately in his room. He said the only thing he cares about today is that he needs to see a dentist. He reports dental pain in his left upper jaw. he says "I have not seen a dentist in 26 years and I need to see one today." He is not depressed because it is hard to think of anything other than the pain. Does report he slept a little better last night, but had a delayed onset of sleep. He did become irritable when attempting to assess his mood and anxiety. He says "I am not the problem. How they make me feel is the problem. It is their fault." He continues to believe that "they need punished". He also feels that no one believes him, but injustice is truly occurring. Regarding the injustice, he says that something needs to be done and "I am not going to lay down." At times he did say "maybe it is just me" or "I guess I just need to live with it", however the delivery had a sarcastic intonation. He reported that he was going to get his shoes and leave to find a dentist who is open today. I explained that he could not leave until he was psychiatrically stable, but I could offer treatment for dental abscess to give him some comfort while he is here. He did report that antibiotics have helped in the past. He had a notably angry/irritable affect, which shifts positions, and would mostly stare at the wall. Once I ended the conversation, he did remain in his room and maintained safe behavior for the rest of the afternoon. Physical Exam Psychiatric Orientation: alert, oriented x 3 and + guarded Apperance: + disheveled Eye Contact: + poor eye contact Motor Behavior: + psychomotor agitation Speech: normal rate/rhythm/volume of speech Affect: + irritable affect, + angry affect, + constricted affect and mood congruent with affect Mood: + irritable mood and + angry mood Thought Process: goal directed thought process and + perseveration Thought Content: + cognitive distortions bordering on paranoia Suicidal Thoughts: denies suicidal thoughts, denies suicidal plan and denies suicidal intent Homicidal Thoughts: + reports homicidal thoughts Hallucinations: no auditory hallucinations and no visual hallucinations Cognition: recent memory grossly intact and remote memory grossly intact Insight: + impaired insight Judgment: + impaired judgement Vital Signs (Past 24 Hours) Last Vital Signs Temp 36.4 C L 04/02/25 06:18 Pulse 74 04/02/25 06:19 Resp 16 04/02/25 06:18 BP 116/72 04/02/25 06:19 Pulse Ox 97 04/01/25 06:30 O2 Del Method Room Air 04/01/25 06:30 Results & Data ([facility]) Current Inpatient Medications Current Inpatient Medications: Current Inpatient Medications Acetaminophen (Acetaminophen 325 Mg Tab) 650 mg PO Q4H PRN PRN Reason: Headache or Minor Fever Stop: 04/29/25 20:37 Al Hydrox/Mg Hydrox/Simethicone (Aluminum/Magnesium Susp 30 Ml Udc) 30 ml PO Q4H PRN PRN Reason: GI Upset Stop: 04/29/25 20:37 Bismuth Subsalicylate (Bismuth Subsalicylate 262 Mg Chew) 2 tab PO Q30M PRN PRN Reason: Loose Stool/Diarrhea Stop: 04/29/25 20:37 Hydroxyzine HCl (Hydroxyzine Hcl 25 Mg Tab) 50 mg PO HSZ PRN PRN Reason: Insomnia Stop: 04/29/25 20:37 Hydroxyzine HCl (Hydroxyzine Hcl 25 Mg Tab) 25 mg PO Q4H PRN PRN Reason: Anxiety Stop: 04/29/25 20:37 Magnesium Hydroxide (Magnesium Hydroxide Susp 30 Ml Udc) 30 ml PO DAILY PRN PRN Reason: Constipation Stop: 04/29/25 20:37 Miscellaneous (Remove Nicoderm Patch) 1 each N/A DAILY@0859 [facility] Stop: 04/30/25 08:58 Last Admin: 04/02/25 08:42 Dose: Not Given Nicotine (Nicotine 21 Mg/24 Hr Tdsy) 1 patch TD QAM [facility] Stop: 04/30/25 08:59 Last Admin: 04/02/25 08:42 Dose: Not Given Nicotine Polacrilex (Nicotine Polacrilex 2 Mg Gum) 2 piece MT PRN PRN PRN Reason: Nicotine Withdrawal Symptoms Stop: 04/29/25 18:42 Sertraline HCl (Sertraline Hcl 50 Mg Tablet) 50 mg PO QAM [facility] Stop: 04/30/25 11:14 Last Admin: 04/02/25 08:41 Dose: 50 mg Sodium Chloride (Sodium Chloride 0.65% Na Soln 45 Ml ([place])) 1 - 2 sprays NA PRN PRN PRN Reason: Nasal Dryness/Congestion Stop: 04/29/25 20:37 Trazodone HCl (Trazodone Hcl 50 Mg Tab) 50 mg PO HS PRN PRN Reason: insomnia Stop: 04/30/25 11:01 Trazodone HCl (Trazodone Hcl 100 Mg Tab) 100 mg PO HS [facility] Stop: 05/01/25 21:59 Last Admin: 04/01/25 22:15 Dose: 100 mg
[2025-04-02] MEDS ORDERED: BENZOCAINE 20% (ORAJEL) 11.9 GM TUBE MT PRN (10:26)
[2025-04-02] MEDS: FIRST - Mouthwash BLM 5 ML UDP PO SCH (11:29)
[2025-04-02] MEDS: AMOXICILLIN/CLAVULANATE 875 MG TAB PO SCH (11:29)
[2025-04-02] MEDS ORDERED: LORazepam 1 MG TAB PO PRN (14:00)
[2025-04-02] MEDS ORDERED: LORazepam Inj 1 MG in SYRINGE 0.5 ML IV PRN (14:17)
[2025-04-02] MEDS ORDERED: LORazepam Inj 1 MG in SYRINGE 0.5 ML IM PRN (14:19)
[2025-04-02] MEDS: NICOTINE POLACRILEX 2 MG GUM MT PRN (14:39)
[2025-04-02] MEDS: ACETAMINOPHEN 325 MG TAB PO PRN (14:40)
[2025-04-02] MEDS: IBUPROFEN 800 MG TAB PO SCH (15:25)
--- NOTE | 2025-04-03 14:03 | Psychiatric Progress Note ---
Date of Service April 03, 2025 Impression / Recommendations Impression TRE ALONSO is a 59-year-old M who currently lives in [facility] with his son, has a history of polysubstance use disorder (cocaine, alcohol), and was admitted on 03/30/25 18:43 on a 201 voluntary commitment for passive SI. Diagnostically consistent with major depressive disorder with irritability and passive SI and HI toward legal system due to his ongoing legal issues and new house arrest. A: Patient's affect and behavior is much improved today. No agitation. He has maintained safe behavior for the duration of his stay, and his verbal outbursts have resolved. Today, he does state he has no plans to hurt anyone. He actually reasonably discussed feeling angry with the legal system, but really reiterated several times he would not harm anyone. He also denies significant depression here. As yesterday, there is not any concern for paranoia, but I suspect distrust of others (especially authority) may be his chronic baseline, related to characterologic pathology. Patient is no longer reporting hopelessness. I reminded him that we do have a duty to warn. If he maintains stability for the rest of today and into tomorrow, I will likely be pursuing discharge soon. His 72 hour notice expires early Friday afternoon. Social work can help make a case management referral tomorrow, and we can contact the necessary parties prior to his discharge. Overall, I spent a total of 35 minutes on this case including meeting with the patient, reviewing the chart, nursing report, multidisciplinary team meeting, orders, and documentation. (1) Major depressive disorder with current active episode: (2) Homicidal ideation: (3) Suicidal ideation: (4) Anxiety: (5) Polysubstance use disorder: (6) Status post amputation of right great toe: Plan : - Continue current meds and treatment. 04/02/25: - I ordered Augmentin 875 mg twice daily for 7 days, as well as Magic mouthwash and Orajel as needed - scheduled ibuprofen 800mg TID while here- -Zyprexa 5 mg every 6 hours p.o. as needed agitation or anxiety -Ativan 1 mg every 4 hours p.o. for agitation only -For severe unsafe behavior/agitation, Ativan 1 mg IM every 4 hours PRN, and Zyprexa 5 mg IM every 6 hours PRN -Pt signed 72 hour notice. 04/01/2025: -Increase trazodone to 100mg HS 03/31/2025: The patient was admitted to the [facility] ([facility] mental health unit) on q15 min checks (behavioral with suicide precautions) for safety. The patient will participate in group, recreational, and milieu therapies and will be offered additional individual and family sessions as clinically appropriate. -start sertraline 50mg daily -start trazodone 50mg HS with additional 50mg HS prn insomnia -Consider Depakote ER 500mg HS in the future for possible migraine and ir ritability, he declines at this time -SW to explore CM referral, clarify PCP Inventory Assets Strengths: supportive relationships, willing to get treatment Needs: safety and stabilization, medication adjustment, additional coping skills, increased outpatient services Suicide Risk Level Suicide Risk Level: Low (q15 min observation checks) ( Denying depression, irritability has resolved, and denying SI and HI.) Suicide Risk Level Comments: Risk Factors Assessment Male: Yes : Yes Do You Have Access To A Gun?: No Health Problems: Yes Mental Health Diagnoses: Yes Substance Use Disorders: Yes Previous Attempt: No Family History of Suicide: Yes Previous Psychiatric Hospitalization: No Hopelessness: Yes Protective Factors Assessment : No Responsible for Young Children: No Employed: No Stable Relationships: Yes Supportive Family: Yes (son) Interval History Chief Complaint "I am doing okay." Review of Systems Sleep Information Total Hours of Sleep: 7.5 Meal Information Percent Meal Consumed - Breakfast: 100 Percent Meal Consumed - Lunch: 100 Percent Meal Consumed - Dinner: 100 Subjective Subjective Patient was seen & assessed and interval progress reviewed with nursing and social work. Per nursing report: Patient was invited to groups yesterday but declined attending during the day. He did attend then later in the evening. He was out of his room to watch football. He reported his mood was a 5 out of 10. He did not require any of the agitation medications yesterday. I met with the patient privately in his room. I had attempted to meet several times earlier but he was napping periodically throughout the day. During our encounter, he said "I am doing good." He did present as much calmer without irritability or brewing agitation. He said "my tooth pain is a lot better." Today, he joked and smiled several times. He had improved eye contact and improved grooming. He is looking forward to leaving and is aware he has a 72- hour notice. He denies depression or suicidality. He reflected on the events and emotions that brought him in. I recounted some of his threatening statements, and he said "I probably did say that, I was really angry." When I pressed further, he said that he does not like to see anyone hurt, and did not actually have plans to shoot anyone. He said "there is nothing I can do, I am going to have to live with it," and then later added "I do not have to like them though." He said he still plans to call them names, but has no plans to hurt anyone. He did confirm he owns guns, and said "doesn't everyone? I use them for hunting." Physical Exam Psychiatric Orientation: alert, oriented x 3, oriented to person and cooperative Apperance: appropriately dressed, appropriately groomed and appeared stated age Eye Contact: good eye contact Motor Behavior: steady gait and station and no abnormal motor movements; no psychomotor agitation Speech: normal rate/rhythm/volume of speech; no pressured speech and no loud speech Affect: euthymic affect full range and relaxed. no lability euthymic Thought Process: goal directed thought process, linear/logical thought process a nd clear/coherent thought process Thought Content: reality based without delusions Suicidal Thoughts: denies suicidal thoughts, denies suicidal plan and denies suicidal intent Homicidal Thoughts: denies homicidal thoughts, denies homicidal plan and denies homicidal intent Hallucinations: no auditory hallucinations and no visual hallucinations Cognition: remote memory grossly intact, attention grossly intact and language grossly intact does not appear to have remembered the details of what he said early in his stay Estimated Intelligence: average estimated intelligence Insight: + fair insight improved Judgment: + fair judgement improved Vital Signs (Past 24 Hours) Last Vital Signs Temp 36.7 C 04/03/25 06:14 Pulse 76 04/03/25 06:15 Resp 16 04/03/25 06:14 BP 144/79 H 04/03/25 06:15 Pulse Ox 97 04/01/25 06:30 O2 Del Method Room Air 04/01/25 06:30 Results & Data ([facility]) Current Inpatient Medications Current Inpatient Medications: Current Inpatient Medications Acetaminophen (Acetaminophen 325 Mg Tab) 650 mg PO Q4H PRN PRN Reason: Headache or Minor Fever Stop: 04/29/25 20:37 Last Admin: 04/02/25 14:40 Dose: 650 mg Al Hydrox/Mg Hydrox/Simethicone (Aluminum/Magnesium Susp 30 Ml Udc) 30 ml PO Q4H PRN PRN Reason: GI Upset Stop: 04/29/25 20:37 Amoxicillin/Clavulanate Potassium (Amoxicillin/Clavulanate 875 Mg Tab) 1 tab PO BIDM [facility]; Protocol Stop: 04/09/25 10:29 Last Admin: 04/03/25 08:58 Dose: 1 tab Benzocaine (Benzocaine 20% (Orajel) 11.9 Gm Tube) 1 appln MT Q4H PRN PRN Reason: dental pain Stop: 05/02/25 10:25 Bismuth Subsalicylate (Bismuth Subsalicylate 262 Mg Chew) 2 tab PO Q30M PRN PRN Reason: Loose Stool/Diarrhea Stop: 04/29/25 20:37 Hydroxyzine HCl (Hydroxyzine Hcl 25 Mg Tab) 50 mg PO HSZ PRN PRN Reason: Insomnia Stop: 04/29/25 20:37 Hydroxyzine HCl (Hydroxyzine Hcl 25 Mg Tab) 25 mg PO Q4H PRN PRN Reason: Anxiety Stop: 04/29/25 20:37 Last Admin: 04/02/25 14:40 Dose: 25 mg Lorazepam 1 mg/ Syringe 1 mls @ 2 mls/min IM Q4H PRN; Protocol PRN Reason: AGITATION Stop: 05/02/25 14:16 Ibuprofen (Ibuprofen 800 Mg Tab) 800 mg PO TIDM [facility] Stop: 05/02/25 14:29 Last Admin: 04/03/25 12:05 Dose: Not Given Lorazepam (Lorazepam 1 Mg Tab) 1 mg PO Q4H PRN PRN Reason: Agitation only Stop: 05/02/25 13:59 Magnesium Hydroxide (Magnesium Hydroxide Susp 30 Ml Udc) 30 ml PO DAILY PRN PRN Reason: Constipation Stop: 04/29/25 20:37 Miscellaneous (Remove Nicoderm Patch) 1 each N/A DAILY@0859 [facility] Stop: 04/30/25 08:58 Last Admin: 04/03/25 08:57 Dose: Not Given Multi-Ingredient Mouthwash/Gargle (First - Mouthwash Blm 5 Ml Udp) 5 ml PO BID STEPHEN Stop: 05/02/25 10:44 Last Admin: 04/03/25 08:59 Dose: 5 ml Nicotine (Nicotine 21 Mg/24 Hr Tdsy) 1 patch TD QAM STEPHEN Stop: 04/30/25 08:59 Last Admin: 04/03/25 08:57 Dose: Not Given Nicotine Polacrilex (Nicotine Polacrilex 2 Mg Gum) 2 piece MT PRN PRN PRN Reason: Nicotine Withdrawal Symptoms Stop: 04/29/25 18:42 Last Admin: 04/02/25 14:39 Dose: 2 piece Olanzapine (Olanzapine 5 Mg Tablet) 5 mg PO Q6H PRN PRN Reason: Anxiety/Agitation Stop: 05/02/25 13:59 Olanzapine (Olanzapine 10 Mg/2.1 Ml Sdv) 5 mg IM Q6H PRN PRN Reason: Severe Agitation Stop: 05/02/25 13:59 Sertraline HCl (Sertraline Hcl 50 Mg Tablet) 50 mg PO QAM STEPHEN Stop: 04/30/25 11:14 Last Admin: 04/03/25 08:58 Dose: 50 mg Sodium Chloride (Sodium Chloride 0.65% Na Soln 45 Ml ([place])) 1 - 2 sprays NA PRN PRN PRN Reason: Nasal Dryness/Congestion Stop: 04/29/25 20:37 Trazodone HCl (Trazodone Hcl 50 Mg Tab) 50 mg PO HS PRN PRN Reason: insomnia Stop: 04/30/25 11:01 Trazodone HCl (Trazodone Hcl 100 Mg Tab) 100 mg PO HS STEPHEN Stop: 05/01/25 21:59 Last Admin: 04/02/25 21:57 Dose: 100 mg Mental Health & Subst Abuse Tx [employer] Officer Name of [employer]: [facility] Post Discharge Appointments Primary Care Physician Name Of Family Doctor/PCP: [facility] Contact Information Discharge Discharge Address: [address] [place] [address], [place] [id number]
[2025-04-04 06:19] VITALS: BP 137/83; TEMP 97.3
--- NOTE | 2025-04-04 08:46 | Psychiatric Progress Note ---
Date of Service April 04, 2025 Impression / Recommendations Impression TRE ALONSO is a 59-year-old M who currently lives in [facility] with his son, has a history of polysubstance use disorder (cocaine, alcohol), and was admitted on 03/30/25 18:43 on a 201 voluntary commitment for passive SI. Diagnostically consistent with major depressive disorder with irritability and passive SI and HI toward legal system due to his ongoing legal issues and new house arrest. A: Patient's affect and behavior is much improved today. No agitation. He has maintained safe behavior for the duration of his stay, and his verbal outbursts have resolved. Today, he does state he has no plans to hurt anyone. He actually reasonably discussed feeling angry with the legal system, but really reiterated several times he would not harm anyone. He also denies significant depression here. As yesterday, there is not any concern for paranoia, but I suspect distrust of others (especially authority) may be his chronic baseline, related to characterologic pathology. Patient is no longer reporting hopelessness. I reminded him that we do have a duty to warn. If he maintains stability for the rest of today and into tomorrow, I will likely be pursuing discharge soon. His 72 hour notice expires early Friday afternoon. Social work can help make a case management referral tomorrow, and we can contact the necessary parties prior to his discharge. Overall, I spent a total of 35 minutes on this case including meeting with the patient, reviewing the chart, nursing report, multidisciplinary team meeting, orders, and documentation. (1) Major depressive disorder with current active episode: (2) Homicidal ideation: (3) Suicidal ideation: (4) Anxiety: (5) Polysubstance use disorder: (6) Status post amputation of right great toe: Plan : - Continue current meds and treatment. 04/02/25: - I ordered Augmentin 875 mg twice daily for 7 days, as well as Magic mouthwash and Orajel as needed - scheduled ibuprofen 800mg TID while here- -Zyprexa 5 mg every 6 hours p.o. as needed agitation or anxiety -Ativan 1 mg every 4 hours p.o. for agitation only -For severe unsafe behavior/agitation, Ativan 1 mg IM every 4 hours PRN, and Zyprexa 5 mg IM every 6 hours PRN -Pt signed 72 hour notice. 04/01/2025: -Increase trazodone to 100mg HS 03/31/2025: The patient was admitted to the [facility]) on q15 min checks (behavioral with suicide precautions) for safety. The patient will participate in group, recreational, and milieu therapies and will be offered additional individual and family sessions as clinically appropriate. -start sertraline 50mg daily -start trazodone 50mg HS with additional 50mg HS prn insomnia -Consider Depakote ER 500mg HS in the future for possible migraine and ir ritability, he declines at this time -SW to explore CM referral, clarify PCP Inventory Assets Strengths: supportive relationships, willing to get treatment Needs: safety and stabilization, medication adjustment, additional coping skills, increased outpatient services Suicide Risk Level Suicide Risk Level: Low (q15 min observation checks) ( Denying depression, irritability has resolved, and denying SI and HI.) Suicide Risk Level Comments: Risk Factors Assessment Male: Yes : Yes Do You Have Access To A Gun?: No Health Problems: Yes Mental Health Diagnoses: Yes Substance Use Disorders: Yes Previous Attempt: No Family History of Suicide: Yes Previous Psychiatric Hospitalization: No Hopelessness: Yes Protective Factors Assessment : No Responsible for Young Children: No Employed: No Stable Relationships: Yes Supportive Family: Yes (son) Interval History Chief Complaint "[]". Review of Systems Sleep Information Total Hours of Sleep: 7.25 Meal Information Percent Meal Consumed - Breakfast: 100 Percent Meal Consumed - Lunch: 100 Percent Meal Consumed - Dinner: 10 Subjective Subjective Patient was seen & assessed and interval progress reviewed with [treatment team Per report: slept 7.25h ate 10% of dinner mood 5-11/23 and "hungry" 72 hour notice up tomorrow around 1pm Physical Exam Vital Signs (Past 24 Hours) Last Vital Signs Temp 36.3 C L 04/04/25 06:18 Pulse 67 04/04/25 06:18 Resp 16 04/04/25 06:18 BP 137/83 04/04/25 06:18 Pulse Ox 97 04/01/25 06:30 O2 Del Method Room Air 04/01/25 06:30 Results & Data ([facility]) Current Inpatient Medications Current Inpatient Medications: Current Inpatient Medications Acetaminophen (Acetaminophen 325 Mg Tab) 650 mg PO Q4H PRN PRN Reason: Headache or Minor Fever Stop: 04/29/25 20:37 Last Admin: 04/02/25 14:40 Dose: 650 mg Al Hydrox/Mg Hydrox/Simethicone (Aluminum/Magnesium Susp 30 Ml Udc) 30 ml PO Q4H PRN PRN Reason: GI Upset Stop: 04/29/25 20:37 Amoxicillin/Clavulanate Potassium (Amoxicillin/Clavulanate 875 Mg Tab) 1 tab PO BIDM [facility]; Protocol Stop: 04/09/25 10:29 Last Admin: 04/03/25 17:03 Dose: 1 tab Benzocaine (Benzocaine 20% (Orajel) 11.9 Gm Tube) 1 appln MT Q4H PRN PRN Reason: dental pain Stop: 05/02/25 10:25 Bismuth Subsalicylate (Bismuth Subsalicylate 262 Mg Chew) 2 tab PO Q30M PRN PRN Reason: Loose Stool/Diarrhea Stop: 04/29/25 20:37 Hydroxyzine HCl (Hydroxyzine Hcl 25 Mg Tab) 50 mg PO HSZ PRN PRN Reason: Insomnia Stop: 04/29/25 20:37 Hydroxyzine HCl (Hydroxyzine Hcl 25 Mg Tab) 25 mg PO Q4H PRN PRN Reason: Anxiety Stop: 04/29/25 20:37 Last Admin: 04/02/25 14:40 Dose: 25 mg Lorazepam 1 mg/ Syringe 1 mls @ 2 mls/min IM Q4H PRN; Protocol PRN Reason: AGITATION Stop: 05/02/25 14:16 Ibuprofen (Ibuprofen 800 Mg Tab) 800 mg PO TIDM [facility] Stop: 05/02/25 14:29 Last Admin: 04/03/25 17:03 Dose: 800 mg Lorazepam (Lorazepam 1 Mg Tab) 1 mg PO Q4H PRN PRN Reason: Agitation only Stop: 05/02/25 13:59 Magnesium Hydroxide (Magnesium Hydroxide Susp 30 Ml Udc) 30 ml PO DAILY PRN PRN Reason: Constipation Stop: 04/29/25 20:37 Miscellaneous (Remove Nicoderm Patch) 1 each N/A DAILY@0859 [facility] Stop: 04/30/25 08:58 Last Admin: 04/03/25 08:57 Dose: Not Given Multi-Ingredient Mouthwash/Gargle (First - Mouthwash Blm 5 Ml Udp) 5 ml PO BID STEPHEN Stop: 05/02/25 10:44 Last Admin: 04/03/25 21:31 Dose: 5 ml Nicotine (Nicotine 21 Mg/24 Hr Tdsy) 1 patch TD QAM STEPHEN Stop: 04/30/25 08:59 Last Admin: 04/03/25 08:57 Dose: Not Given Nicotine Polacrilex (Nicotine Polacrilex 2 Mg Gum) 2 piece MT PRN PRN PRN Reason: Nicotine Withdrawal Symptoms Stop: 04/29/25 18:42 Last Admin: 04/02/25 14:39 Dose: 2 piece Olanzapine (Olanzapine 5 Mg Tablet) 5 mg PO Q6H PRN PRN Reason: Anxiety/Agitation Stop: 05/02/25 13:59 Olanzapine (Olanzapine 10 Mg/2.1 Ml Sdv) 5 mg IM Q6H PRN PRN Reason: Severe Agitation Stop: 05/02/25 13:59 Sertraline HCl (Sertraline Hcl 50 Mg Tablet) 50 mg PO QAM STEPHEN Stop: 04/30/25 11:14 Last Admin: 04/03/25 08:58 Dose: 50 mg Sodium Chloride (Sodium Chloride 0.65% Na Soln 45 Ml ([place])) 1 - 2 sprays NA PRN PRN PRN Reason: Nasal Dryness/Congestion Stop: 04/29/25 20:37 Trazodone HCl (Trazodone Hcl 50 Mg Tab) 50 mg PO HS PRN PRN Reason: insomnia Stop: 04/30/25 11:01 Trazodone HCl (Trazodone Hcl 100 Mg Tab) 100 mg PO HS STEPHEN Stop: 05/01/25 21:59 Last Admin: 04/03/25 21:31 Dose: 100 mg Mental Health & Subst Abuse Tx Transformer Tester Name of Transformer Tester: [facility] ([address] [place] [id number]) Phone Number for Transformer Tester: Case Management Appointment Comment: Case management referral submitted on 04/02/25, on waitlist Post Discharge Appointments Primary Care Physician Name Of Family Doctor/PCP: Alex [place] (Dr. Rodgers) Primary Care Date of Future Appointment with PCP: 04/18/25 Time of Appointment with PCP: 8am Provider Appointment Comment: [address], [place] [address], [place] Specialist Name of Specialist: [facility] Phone Number for Specialist: Date of Appointment with Specialist: 04/05/25 Time of Appointment with Specialist: 10:15am Contact Information Discharge Discharge Address: [address] [place] [address] [place], [place] [id number]
--- NOTE | 2025-04-04 11:17 | Discharge Summary ---
Date of Service April 04, 2025 History of Present Illness He presents for psychiatric admission for worsening depression and SI and HI in the context of multiple psychosocial stressors including of his father, blind in right eye, right toe s/p amputation, finances. Mario presents for psychiatric admission with thoughts that life was not worth living anymore and feeling like a burden. He is currently living with his son due to being out of work following a toe amputation infection on his right toe which has since healed without ongoing pain or need for antibiotics. Recent stressors include the of his father and dealing with his toe amputation. He cannot identify any target symptoms or things that would make his life better. He feels stuck because he can't return to work out of state due to ankle bracelet. He's very frustrated with the police. He states "Police, judges, probation officers need to stay away from me". He feels they are all corrupt and make up lies to get him in trouble and "they all need to go away". He states "it just keeps getting worse and all they need to do is tell a lie. I don't want nothing to do with them, I don't want none of them around me. You cannot trust nobody in that system, it's sickening". He states "I'm tired of everything and want left alone". Struggles to stay asleep. Appetite has been stable. He endorses depressive symptoms including tearfulness, irritability, anhedonia (typically likes to harvey and fish), decreased motivation, helplessness, hopelessness, worthless, decreased energy. SI has been occurring every now and then "sometimes", but never thought of a plan. He also endorses symptoms of anxiety including generalized worries, shakiness, easily overwhelmed and panic attacks (couple times per year). He reports significant anger and frustration with the legal system stating he is currently on probation for past DUIs and expresses intense hostility toward police, probation offers, Judges on the court system which he describes as corrupt. He feels unable to return to work out of state due to his legal situation and home arrest and describes feeling that "everything was just bad" and that there is nothing that can be done to change his circumstances. He describes "police, the county are a whole bunch of crooked sons of bi*ches" and explains "if they do not leave me alone soon, I'll start shooting them one by one, every one of them. Anyone that comes around." He continues "I am done with them, they are a bunch of lying crooked co*k suckers and I am done with them, everyone of them. 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 Asked about if he is venting his anger or thinks he would try to cause harm or kill these individuals he states: "I do not want nothing to do with any of them, they better stay away from me all of them, they are liars, they're a bunch of crooked co*k suckers that is what it is, they have nothing to do with the law there is no long enforcement in this state the whole court system is a swamp, it is corrupt". Asked if he thinks he would ever go through with trying to harm them he states "I do not know. If something ain't done that is what needs to be done." He describes "I have dealt with these people for I don't know how many years and years it just keeps getting worse and they keep getting away with more and more and more all they have to do is tell lies and that is it and you are found you are guilty I ain't doing it no more." He states "But I am just tired of them. I am tired of everything. I am just tired.". He reports no previous psychiatric diagnoses but has a history of substance use including cocaine and alcohol and marijuana though he states his alcohol use was problematic "way back" and he drank "a long time" ago. Currently he reports having a beer occasionally with his last alcohol use approximately 2 weeks ago describing that when he does have a beer takes him a month to drink a sixpack. He also reports using marijuana nightly before bed to help with sleep. He is not currently prescribed any psychiatric medications. Psychiatric ROS notable for no current nor history of symptoms of shanae, psychosis, PTSD, OCD, self-harm nor eating disorder. 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 He denies having any history of glaucoma in his left eye but also has not seen an eye doctor in many years. States last time he was seen his left eye had normal pressure. He also reports significant dental problems stating all his teeth are bad and are "cutting my tongue into a serpentine" noting he has not seen a dentist in 40 years. He declines option for Orajel but is willing to consider going to a dentist after this hospitalization noting "I need to". Physical Exam Psychiatric Orientation: alert, oriented x 3, oriented to person and cooperative Apperance: appropriately dressed and appropriately groomed improved from admission Eye Contact: good eye contact Motor Behavior: no abnormal motor movements gait mildly unsteady due to toe amputation Speech: normal rate/rhythm/volume of speech Affect: euthymic affect calm, not labile. improved from admission euthymic mood. Thought Process: goal directed thought process, linear/logical thought process and clear/coherent thought process Thought Content: reality based without delusions Suicidal Thoughts: denies suicidal thoughts, denies suicidal plan and denies suicidal intent Homicidal Thoughts: denies homicidal thoughts, denies homicidal plan and denies homicidal intent Hallucinations: no auditory hallucinations and no visual hallucinations Cognition: remote memory grossly intact, attention grossly intact and language grossly intact Does not recall specifically the threats he made on admission Estimated Intelligence: consistent with education level Insight: + fair insight Judgment: + fair judgement Vital Signs (Past 24 Hours) Last Vital Signs Temp 36.3 C L 04/04/25 06:18 Pulse 67 04/04/25 06:18 Resp 16 04/04/25 06:18 BP 137/83 04/04/25 06:18 Pulse Ox 97 04/01/25 06:30 O2 Del Method Room Air 04/01/25 06:30 See admission H&P, MSE per above and day of discharge summary. Principal Diagnosis MDDR Psychiatric Data See daily stay summary. In short, safety was maintained and the patient was overall cooperative with care. he had significant irritability early in his stay, with some verbal escalation but no behavioral outbursts. He did maintain safe behavior while here. Medication changes included initiation of Zoloft and trazodone and they tolerated this well. Irritability significantly improved when dental pain was addressed by adding an antibiotic (Augmentin) and ibuprofen. He recanted the homicidal thoughts, acknowledging he still feels angry at law enforcement, but does not want to hurt anyone. He also denied any further suicidal thoughts. His hygiene improved, and he was able to tolerate being out of his room, on the unit, around peers and in group without behavioral/verbal escalation. At that point, he spoke reasonably about feeling upset with law enforcement and disappointed in the system. His affect brightened and speech was less pressured, and more organized. A family session was declined by the patient, and safety plan was completed prior to discharge. It was confirmed with his son that guns were secured. Patient did agree to a case management referral, but declined therapy. Day of Discharge Assessment Today the patient voices readiness for discharge. They note improvement in mood and anger. Irritability significantly improved when dental pain was addressed by adding an antibiotic (Augmentin) and ibuprofen. They deny thoughts of harm to self or others. He recanted the homicidal thoughts, acknowledging he still feels angry at law enforcement, but does not want to hurt anyone. Thoughts are organized and they are clinically improved from admission. There is no evidence of psychosis. They improved in the hospital with support and medication adjustments. They agree to take medications as prescribed and keep follow-up appointments. At the time of the discharge they are deemed to be stable and appropriate for outpatient level of care. They are not deemed to be at imminent risk of harm to self or others. They are aware of emergency and crisis services. Knows to call 911 or go to nearest emergency care center if in a crisis which cannot be handled as an outpatient. On day of discharge, I did call the police department as part of the duty to warn, since patient made specific threats against his chemistry technical officer, the the public relations manager, and any law enforcement involved with his case. I did report that he initially made the statements, and had improved during his stay here, and was being discharged today. Police did call back, reporting they had a warrant and would be picking him up today. They arrived shortly to the unit. I did then inform the patient of the warrant and that he would be discharged to custody. 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 If he does remain in custody, they will continue those medications for him. He remained calm and cooperative. We did give the patient his belongings, but he was missing shoes. Shoes were not in the initial belongings assessment, but he reported he had some. We offered him flip-flops, but he declined. He did leave the unit cooperatively, and was met by police just outside the unit doors, taken into custody at that time. Transition of Care Transition Of Care Record: was reviewed with the patient Advance Directives Advance Directives Information Provided: Yes Advance Directives: No Mental Health Advance Directive: No Advance Directives on File: No Living Will: No Power of Small Animal Caretaker: No Advance Directives Reason:: Declines as Mental Health Visit. Suicide Risk Level Suicide Risk Level: Low (q15 min observation checks) Suicide Risk Level Comments: Risk Factors Assessment Male: Yes : Yes Do You Have Access To A Gun?: No Health Problems: Yes Mental Health Diagnoses: Yes Substance Use Disorders: Yes Previous Attempt: No Family History of Suicide: Yes Previous Psychiatric Hospitalization: No Hopelessness: No Protective Factors Assessment : No Responsible for Young Children: No Employed: No Stable Relationships: Yes Supportive Family: Yes (son) Total Time Total Time Spent: Greater Than 30 Minutes Total Time Includes: Examination of the patient, Discharge Planning, Medication Reconciliation, Communication with other providers and As well as (coordination with law enforcement) Discharge Data Lab Results 03/30/25 14:37 WBC 10.22 RBC 5.92 Hgb 15.8 Hct 49.0 MCV 82.8 MCH 26.7 MCHC 32.2 RDW Std Deviation 42.2 RDW Coeff of Serenity 14.0 Plt Count 279 MPV 10.3 Immature Gran % (Auto) 0.4 Neut % (Auto) 62.8 Lymph % (Auto) 24.7 [place] % (Auto) 8.8 Eos % (Auto) 2.8 Baso % (Auto) 0.5 Neut # (Auto) 6.42 Lymph # (Auto) 2.52 [place] # (Auto) 0.90 H Eos # (Auto) 0.29 Baso # (Auto) 0.05 Immature Gran # (Auto) 0.04 Sodium 140 Potassium 4.5 Chloride 106 Carbon Dioxide 28 Anion Gap 6 BUN 16 Creatinine 0.81 Est Cr Clr Drug Dosing 88.2 eGFR 102.84 BUN/Creatinine Ratio 19.8 Glucose 103 H Calcium 9.8 Total Bilirubin 0.3 AST 15 ALT 11 Alkaline Phosphatase 92 Total Protein 7.5 Albumin 4.2 Globulin 3.3 Albumin/Globulin Ratio 1.3 TSH 3.032 Urine Color Yellow Urine Appearance Clear Urine pH 7.0 Ur Specific Gentry 1.019 Urine Protein Negative Urine Glucose (UA) Negative Urine Ketones Negative Urine Blood Negative Urine Nitrite Negative Urine Bilirubin Negative Urine Urobilinogen Negative Ur Leukocyte Esterase Negative Urine Comment Salicylates < 3.0 L Urine Opiates Screen Neg Ur Methadone, Qual Neg Urine Fentanyl Screen Neg Acetaminophen < 3 L Urine Barbiturates Neg Ur Phencyclidine (PCP) Neg U Amphetamin/Meth Scrn Neg MDMA (Ecstasy) Screen Neg U Benzodiazepines Scrn Neg Ur Cocaine Metabolite Neg U Marijuana (THC) Screen Neg Ethyl Alcohol mg/dL < 10.0 SARS-CoV-2, RNA, NAAT NEGATIVE Hospital Course (1) Major depressive disorder with current active episode: (2) Homicidal ideation: (3) Suicidal ideation: (4) Anxiety: (5) Polysubstance use disorder: (6) Status post amputation of right great toe: Plan 04/04/25: -d/c to police custody due to warrant : - Continue current meds and treatment. 04/02/25: - I ordered Augmentin 875 mg twice daily for 7 days, as well as Magic mouthwash and Orajel as needed - scheduled ibuprofen 800mg TID while here- -Zyprexa 5 mg every 6 hours p.o. as needed agitation or anxiety -Ativan 1 mg every 4 hours p.o. for agitation only -For severe unsafe behavior/agitation, Ativan 1 mg IM every 4 hours PRN, and Zyprexa 5 mg IM every 6 hours PRN -Pt signed 72 hour notice. 04/01/2025: -Increase trazodone to 100mg HS 03/31/2025: The patient was admitted to the [facility] ([facility] inpatient mental health unit) on q15 min checks (behavioral with suicide precautions) for safety. The patient will participate in group, recreational, and milieu therapies and will be offered additional individual and family sessions as clinically appropriate. 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 Rodgers) Primary Care Date of Future Appointment with PCP: 04/18/25 Time of Appointment with PCP: 8am Provider Appointment Comment: [address] [place] [address], [facility] Specialist Name of Specialist: [facility] Phone Number for Specialist: Date of Appointment with Specialist: 04/05/25 Time of Appointment with Specialist: 10:15am Contact Information Discharge Discharge Address: [address] [place] [address], [place] [address] Discharge Plan Discharge Items Patient Disposition: Home - Self-Care Reason For Visit: UNSPECIFIED DEPRESSIVE DISORDER Discharge Diagnosis: Major Depressive Disorder Condition on Discharge: Fair Activity: Resume your previous activity Non-emergency contact: Primary Care Provider Call non-emergency contact if: you have any medication questions and your symptoms worsen Follow-up/Referrals: PCP,NO [Primary Care Provider] - Diet: Regular Addtl Attending Provider Instructions: Reminders: - Follow up with your podiatry appointment as previously scheduled - Establish with a dentist in your area for dental care. - Finish antibiotic to completion. SPECIAL CARE INSTRUCTIONS: 1. Follow through with your scheduled aftercare appointments. If unable to keep an appointment, please call to reschedule. 2. Take your medication only as prescribed. Medication should not be changed or stopped without the approval of your doctor. In the event of worsening symptoms or concerns about side effects, contact your doctor immediately. 3. Utilize new healthy coping skills, anger management skills, and stress management skills learned during your hospitalization. Journal feelings and process them with a support person. Identify stressors or situations that may result in relapse, deterioration or inappropriate behaviors and develop a plan to deal with those issues. 4. If your coping skills are ineffective and you are in crisis, contact your outpatient providers for direction. If unable to reach your providers, please call the [facility] CRISIS LINE AT , go to the [facility] walk-in center at [address], [address], [place], or go to the closest Emergency Room. 5. Avoid alcohol and un-prescribed drugs. 6. You have been provided with the Mental Health Advance Directives Pamphlet for your review. 7. Your condition is stable for discharge to outpatient level of care, but recovery is an ongoing process. Ifthoughts to harm yourself or others return, follow the safety plan developed during your stay. Planning for a safe return home includes securing weapons. Our treatment team recommends weaponsbe removed from the home until your outpatient provider reassesses your progress. In rare cases where the items themselvescannot be removed, guns and ammunitionshould be secured separatelyand keys stored by a reliable personoutside of the home. If you were admitted on an involuntary commitment, the police or other legal authorities may be involved in this process. AFTERCARE APPOINTMENTS: * Please call your insurance company prior to your scheduled appointment to confirm your aftercare providers are covered. Take your insurance information to your appointments. WHO TO CALL AND WHEN: Medical Emergencies: For questions or emergencies related to your hospital stay, please contact the Inpatient Behavioral Health Unit at [phone]. A provider network manager is on-call 06/01 for the Behavioral Health Unit for emergencies At any time you feel your situation is an emergency, you may also call 911 immediately. Pending Studies at Discharge: No Stand-Alone Forms: My [facility], Smoking Cessation Medications and DC Order Prescriptions: New trazodone 100 mg Tablet 100 mg PO HS 30 Days Qty: 30 0RF sertraline 50 mg Tablet 50 mg PO QAM 30 Days Qty: 30 0RF amoxicillin-pot clavulanate 875-125 mg Tablet 1 tab PO BIDM 5 Days Qty: 10 0RF No Action No Known Home Medications Discharge Orders: Discharge Order (Routine); Ordered 04/04/25 Ordered By: Maria R Jennings Admission Data Admit Date/Time: 03/30/25 18:43 Attending Provider: Ericka Rodarte Admit Provider: Ericka Rodarte Primary Care Provider: PCP,NO Other Interventions: Discharge Summary Assessment (RN) Last Done: 04/04/25 11:36 PSY Interdisciplinary Discharge Planning Last Done: 04/04/25 08:17 Coding Level of Care Code 84946 D/C day mgmt > 30 min Diagnoses Major depressive disorder with current active episode F32.9 Homicidal ideation R45.850 Suicidal ideation R45.851 Anxiety F41.9 Polysubstance use disorder F19.90 Status post amputation of right great toe Z89.411
[2025-04-04 11:38] VITALS: PULSE 80
== END 2025-04-04 12:00 | disposition home or self-care (01) | DRG 881 ==
LOC: ED 14:15 → 3S 18:43